=== PATIENT | female | born 1985 | race Caucasian/White ===

== ENCOUNTER 2017-01-05 10:06 | Inpatient (IN) | payer MEDICARE ==
[~2017-01-05] VITALS: Ht 157.5 cm; Wt 52.3 kg
[~2017-01-05 10:06] MED LIST: ACETAMINOPHEN325 MG NG; ATACAND16 MG PO; ATIVAN1 MG PO; BAYER CHEWABLE81 MG PO; BENADRYL25 MG PO; BENADRYL50 MG PO; BUMEX2 MG PO; BUTALB-APAP-CA1 EACH PO; CARAFATE1 G PO; COUMADIN2 MG PO; CREON (PANCRELI1 CAP PO; DILAUDID INJ2 MG/ML PO; DILAUDID2 MG PO; DOMPERIDONE PO; ELAVIL25 MG PO; EPOGEN10000 U/ML; ESGIC TABLET1 TAB PO; EUCERIN CREAM120 GM TP; FLOMAX0.4 MG PO; HUMALOG 30100 UNITS/ SC; HUMALOG100 U/M1 SQ; HUMULIN R100 U/ML SC; INSTA-GLUCOSE31 GM PO; LEVAQUIN500 MG PO; LEVEMIR100 U/M1 SC; LEVEMIR100 U/M1 SQ; LOPRESSOR25 MG PO; NEURONTIN 100100 MG PO; NORCO 7.5-3251 EACH PO; NORVASC PO; NORVASC5 MG PO; OMNICEF300 MG PO; ONDANSETRON4 MG/2 M3 IV; PERCOCET 7.5/321 TA1 PO; PHENERGAN25 M1 PO; PHENERGAN25 MG RC; PHENERGAN25 MG/ML IV; PLAVIX75 MG PO; PRILOSEC20 MG PO; PRINIVIL20 MG PO; PROTEIN LIQUID30 ML PO; PROTONIX40 MG PO; REGLAN10 MG PO; REGLAN5 MG PO; SENOKOT-S TABLE1 TAB PO; TUMS500 MG PO; TYLENOL 8 HOUR650 MG PO; XARELTO15 MG PO; ZESTRIL10 MG PO; ZOFRAN4 MG PO; [UNRECOGNIZED DRUG - OTHER] IV
[2017-01-05] MEDS ORDERED: XANAX1 MG PO (10:47)
[2017-01-05] MEDS ORDERED: SENSIPAR60 MG PO (10:48)
[2017-01-05] MEDS ORDERED: PRINIVIL20 MG PO (10:48)
[2017-01-05] MEDS ORDERED: LEVEMIR100 U/M1 SC (10:49)
[2017-01-05] MEDS ORDERED: HUMALOG 30100 UNITS/ SC ×2 (10:50→10:51)
[2017-01-05] MEDS ORDERED: BENADRYL INJ50 MG/ML IV (10:53)
[2017-01-05 11:16] VITALS: BP 149/75; BMI 22.0
[2017-01-05 12:19] LABS: BASOPHILS 0.2 % (0-2); EOSINOPHILS 0 % (0-7); HEMATOCRIT 32.9 % (36.0-48.0); HEMOGLOBIN 10.5 g/dL (12-16); IMMATURE GRANULOCYTES 0.1 % (0-5); LYMPHOCYTES 1.4 % (15-50); MCH 32.4 pg (26.0-34.0); MCHC 31.9 g/dL (31.0-37.0); MCV 101.5 fL (80.0-100.0); MONOCYTES 3.3 % (2-11); PLATELET COUNT 204 10x3/uL (130-400); RBC 3.24 10x6/uL (4.00-5.40); RDW 15.9 % (11.5-14.5); WBC 11.3 10x3/uL (4.8-10.8)
[2017-01-05 12:29] LABS: ALBUMIN 3.2 g/dL (3.4-5.0); ANION GAP 23.8 mmol/L (8-16); BILIRUBIN - TOTAL 0.54 mg/dL (0.2-1.3); CALCIUM 7.9 mg/dL (8.5-10.1); CARBON DIOXIDE 18.5 mmol/L (21.0-32.0); CREATININE - SERUM 7.7 mg/dL (0.6-1.3); POTASSIUM - SERUM 5.3 mmol/L (3.5-5.1); PROTEIN - SERUM 7.3 g/dL (6.4-8.2)
[2017-01-05 12:56] LABS: APTT 40.8 SECONDS (22.8-39.4); INR 1.42 (0.85-1.17); PROTIME 17.2 SECONDS (11.6-15.0)
[2017-01-05 15:46] VITALS: BP 122/85
[2017-01-05 19:00] VITALS: BP 137/78
[2017-01-06 04:00] VITALS: BP 119/81
[2017-01-06 05:38] LABS: BASOPHILS 0.4 % (0-2); EOSINOPHILS 0 % (0-7); HEMATOCRIT 31.5 % (36.0-48.0); HEMOGLOBIN 9.9 g/dL (12-16); IMMATURE GRANULOCYTES 0.1 % (0-5); LYMPHOCYTES 2.7 % (15-50); MCH 31.9 pg (26.0-34.0); MCHC 31.4 g/dL (31.0-37.0); MCV 101.6 fL (80.0-100.0); MEAN PLATELET VOLUME 11.4 fL (7.4-10.4); MONOCYTES 2.8 % (2-11)
[2017-01-06 05:53] LABS: PLATELET COUNT 159 10x3/uL (130-400); WBC 7.8 10x3/uL (4.8-10.8)
[2017-01-06 06:06] LABS: ANION GAP 21.9 mmol/L (8-16); CARBON DIOXIDE 20.3 mmol/L (21.0-32.0); CREATININE - SERUM 8.7 mg/dL (0.6-1.3); POTASSIUM - SERUM 5.2 mmol/L (3.5-5.1); VANCOMYCIN - RANDOM 17.2 ug/mL (10.0-20.0)
[2017-01-06 06:10] LABS: PHOSPHOROUS 9.2 mg/dL (2.5-4.9)
[2017-01-06 07:00] VITALS: BP 134/70
[2017-01-06 12:21] VITALS: Ht 157.5 cm; Wt 52.3 kg
[2017-01-06 12:54] VITALS: BP 136/85
[2017-01-06 16:55] VITALS: BP 131/64
[2017-01-06 19:00] VITALS: BP 97/52
[2017-01-07] VITALS: BP 127/68
[2017-01-07 04:00] VITALS: BP 116/59
[2017-01-07 05:33] LABS: BASOPHILS 0.5 % (0-2); EOSINOPHILS 0 % (0-7); LYMPHOCYTES 6.6 % (15-50); MCH 31.7 pg (26.0-34.0); MCHC 31.3 g/dL (31.0-37.0); MCV 101.2 fL (80.0-100.0); MEAN PLATELET VOLUME 11.4 fL (7.4-10.4); NEUTROPHILS 88.9 % (40-80); PLATELET COUNT 132 10x3/uL (130-400); RDW 15.8 % (11.5-14.5)
[2017-01-07 05:34] LABS: HEMATOCRIT 24.6 % (36.0-48.0); HEMOGLOBIN 7.7 g/dL (12-16); RBC 2.43 10x6/uL (4.00-5.40); WBC 4.2 10x3/uL (4.8-10.8)
[2017-01-07 05:51] LABS: CALCIUM 8.4 mg/dL (8.5-10.1); CARBON DIOXIDE 18.6 mmol/L (21.0-32.0); POTASSIUM - SERUM 5.6 mmol/L (3.5-5.1)
[2017-01-07 09:00] VITALS: BP 153/70
--- NOTE | 2017-01-07 13:45 | OP ---
PATIENT NAME: RM BOLTON MEDICAL RECORD: [id number] :[birth year] LOCATION:D.M2 D.2136 ADMISSION DATE:01/05/17 SURGEON: BRYCE MEJIA MD DATE OF OPERATION: 01/06/2017 PREOPERATIVE DIAGNOSES: 1. Infected right upper extremity AV graft. 2. End-stage renal disease. 3. Diabetes mellitus. 4. Diabetic gastroparesis. 5. AV graft pseudoaneurysm. POSTOPERATIVE DIAGNOSES: 1. Infected right upper extremity AV graft. 2. End-stage renal disease. 3. Diabetes mellitus. 4. Diabetic gastroparesis. 5. AV graft pseudoaneurysm. PROCEDURE: 1. I&D of the right upper extremity AV graft abscess. 2. Right upper extremity AV graft resection and replacement. SURGEON: Bryce Mejia MD REPORT OF PROCEDURE: The patient's abdomen was prepped and draped in sterile fashion. The sutures, which were in place were removed. The lateral/inferior suture revealed an open wound, which is not currently bleeding, but as I probed the wound, there began to be a little bit of bleeding and I noted that this appeared to be a pseudoaneurysm. The skin over top of this was completely eroded. I did not run into any purulent material rooted around through the subcutaneous tissues and they were all firmly attached to the area. At this point, I decided just going to replace the piece of infected graft where the pseudoaneurysm appeared to be present. Skin incisions were made on the afferent and efferent limbs to the AV graft. I was able to get around the graft itself and transect the graft once proximal and distal control had been obtained. Once we transected the graft, then I removed the infected graft towards the pseudoaneurysms through the skin that was broken down. Upon doing this, the skin that was attached to the graft was soaked in that it actually was tearing off. We decided just to excise this thin skin because I did not figure it would be able to survive once the graft was removed. This left us with a large wound on 2 separate places on the arm. The graft was completely excised and sent off for permanent specimen. We then tunneled a 40 cm, 6-mm graft around the patient's right upper extremity. The grafts ends were then cut with beveled tips. The patient was given 5000 units of heparin IV. We then performed end-to-end anastomoses of the graft materials using running 6-0 Prolenes. At the conclusion of this, there was significant amount of oozing from the puncture holes where the needle had been place. We tried light compression, we tried Fibrillar, we tried Sherif, but none of these seemed to stop the bleeding. We even tried given the patient a small dose of protamine, again the bleeding did not stop. We eventually decided just to close the wounds. The small puncture opening that was most lateral was closed with interrupted 5-0 Monocryl times 2. The remaining 3 incisions were all closed with 2-0 nylons in a vertical mattress fashion. We then cleaned off the arm and place pressure dressings over the bleeding sources and wrapped the arm up in Kerlix and an Archie wrap as a pressure OPERATIVE REPORT [id number] RM BOLTON dressing. Prior to this, it was noted that the patient had a good palpable thrill throughout the AV graft and especially at its most efferent end. COMPLICATIONS: None. CONDITION: Stable. ANESTHESIA: General endotracheal. BLOOD LOSS: 500 mL. TRANSINT:[id number] Voice Confirmation ID: [id number] DOCUMENT ID: [id number] BRYCE MEJIA MD at 1345 CC: ROLAND PEPE MD [id number] DICTATION DATE: 01/06/17 1633 RUNNING SPECIALIST: 01/07/17 0115 [facility] IN [facility] [address] [place] [address]
[2017-01-07 16:52] LABS: BASOPHILS 0.3 % (0-2); EOSINOPHILS 1.4 % (0-7); IMMATURE GRANULOCYTES 0.2 % (0-5); LYMPHOCYTES 4.8 % (15-50); MCH 31.7 pg (26.0-34.0); MCHC 32.7 g/dL (31.0-37.0); MEAN PLATELET VOLUME 11.3 fL (7.4-10.4); MONOCYTES 3.8 % (2-11); NEUTROPHILS 89.5 % (40-80); PLATELET COUNT 139 10x3/uL (130-400); RDW 16.8 % (11.5-14.5)
[2017-01-07 16:53] LABS: HEMATOCRIT 33.9 % (36.0-48.0); HEMOGLOBIN 11.1 g/dL (12-16); MCV 96.9 fL (80.0-100.0); WBC 6.6 10x3/uL (4.8-10.8)
[2017-01-07 17:24] VITALS: BP 107/67
[2017-01-07 20:19] VITALS: BP 117/73
[2017-01-08 04:33] VITALS: BP 101/50
[2017-01-08 06:23] LABS: BASOPHILS 0.6 % (0-2); HEMATOCRIT 32.5 % (36.0-48.0); HEMOGLOBIN 10.7 g/dL (12-16); IMMATURE GRANULOCYTES 0.2 % (0-5); LYMPHOCYTES 9.2 % (15-50); MCHC 32.9 g/dL (31.0-37.0); MCV 97.3 fL (80.0-100.0); MEAN PLATELET VOLUME 11.8 fL (7.4-10.4); MONOCYTES 7.5 % (2-11); NEUTROPHILS 81.5 % (40-80); PLATELET COUNT 150 10x3/uL (130-400); RBC 3.34 10x6/uL (4.00-5.40); RDW 17.5 % (11.5-14.5); WBC 5.2 10x3/uL (4.8-10.8)
[2017-01-08 06:38] LABS: ANION GAP 19.7 mmol/L (8-16); CARBON DIOXIDE 23.9 mmol/L (21.0-32.0); CREATININE - SERUM 7.6 mg/dL (0.6-1.3); POTASSIUM - SERUM 4.6 mmol/L (3.5-5.1)
[2017-01-08 06:40] LABS: CALCIUM 6.9 mg/dL (8.5-10.1)
[2017-01-08 09:34] VITALS: BP 106/66
== END 2017-01-08 12:55 | disposition home or self-care (01) | DRG 264 ==
LOC: D.M2 10:06
PROVIDERS: Surgery; ADMIT Internal Medicine Nephrology
PROC: 039 Upper Arteries, Drainage (ICD-10-PCS; 2017-01-06)
PROC: 03170KF Bypass Right Brachial Artery to Lower Arm Vein with Nonautologous Tissue Substitute, Open Approach (ICD-10-PCS; principal; 2017-01-06 12:15)
DX: T82.7XXA Infection and inflammatory reaction due to other cardiac and vascular devices, implants and grafts, initial encounter (principal); N18.6 End stage renal disease; I12.0 Hypertensive chronic kidney disease with stage 5 chronic kidney disease or end stage renal disease; Y83.8 Other surgical procedures as the cause of abnormal reaction of the patient, or of later complication, without mention of misadventure at the time of the procedure; E11.22 Type 2 diabetes mellitus with diabetic chronic kidney disease; Z79.4 Long term (current) use of insulin; D64.9 Anemia, unspecified; E11.43 Type 2 diabetes mellitus with diabetic autonomic (poly)neuropathy; K31.84 Gastroparesis; Z99.2 Dependence on renal dialysis; Z72.0 Tobacco use; B95.62 Methicillin resistant Staphylococcus aureus infection as the cause of diseases classified elsewhere

== ENCOUNTER 2017-06-19 12:27 | Inpatient (IN) | payer MEDICARE ==
[~2017-06-19] VITALS: Ht 157.5 cm; Wt 60.0 kg
[~2017-06-19 12:27] MED LIST changes: +BENADRYL INJ50 MG/ML IV; +SENSIPAR60 MG PO; +XANAX1 MG PO
[2017-06-19 14:30] LABS: BASOPHILS 0.3 % (0-2); EOSINOPHILS 1.8 % (0-7); HEMATOCRIT 27.9 % (36.0-48.0); HEMOGLOBIN 8.7 g/dL (12-16); IMMATURE GRANULOCYTES 0.4 % (0-5); LYMPHOCYTES 6.7 % (15-50); MCH 31.2 pg (26.0-34.0); MCHC 31.2 g/dL (31.0-37.0); MONOCYTES 7.1 % (2-11); NEUTROPHILS 83.7 % (40-80); RBC 2.79 10x6/uL (4.00-5.40); RDW 17.6 % (11.5-14.5); WBC 11.3 10x3/uL (4.8-10.8)
[2017-06-19 14:31] LABS: PLATELET COUNT 205 10x3/uL (130-400)
[2017-06-19 15:22] LABS: ALBUMIN 1.9 g/dL (3.4-5.0); BILIRUBIN - TOTAL 0.42 mg/dL (0.2-1.3); CARBON DIOXIDE 25.9 mmol/L (21.0-32.0); CREATININE - SERUM 5.6 mg/dL (0.6-1.3); POTASSIUM - SERUM 3.9 mmol/L (3.5-5.1); PROTEIN - SERUM 5.7 g/dL (6.4-8.2)
[2017-06-19 15:27] LABS: CALCIUM 6.5 mg/dL (8.5-10.1)
[2017-06-19 22:40] VITALS: BP 96/57; BMI 21.8
[2017-06-19] MEDS ORDERED: RENVELA800 MG PO (22:57)
[2017-06-19] MEDS ORDERED: PHENERGAN25 M1 PO (22:57)
[2017-06-19] MEDS ORDERED: ULTRAM50 MG PO (22:58)
[2017-06-19] MEDS ORDERED: LASIX80 MG PO (22:59)
[2017-06-19] MEDS ORDERED: ZOFRAN8 MG PO (23:00)
[2017-06-20 00:30] VITALS: BP 94/59
[2017-06-20 04:30] VITALS: BP 100/62
[2017-06-20 05:53] LABS: BASOPHILS 0.2 % (0-2); EOSINOPHILS 0.7 % (0-7); HEMATOCRIT 29.1 % (36.0-48.0); HEMOGLOBIN 8.4 g/dL (12-16); IMMATURE GRANULOCYTES 0.8 % (0-5); LYMPHOCYTES 7.3 % (15-50); MCH 30.7 pg (26.0-34.0); MCHC 28.9 g/dL (31.0-37.0); MEAN PLATELET VOLUME 10.2 fL (7.4-10.4); MONOCYTES 7.2 % (2-11); NEUTROPHILS 83.8 % (40-80); PLATELET COUNT 222 10x3/uL (130-400); RBC 2.74 10x6/uL (4.00-5.40); RDW 18.3 % (11.5-14.5); WBC 10.5 10x3/uL (4.8-10.8)
[2017-06-20 06:01] LABS: MCV 106.2 fL (80.0-100.0)
[2017-06-20 06:59] LABS: ANION GAP 18.6 mmol/L (8-16); CALCIUM 7.1 mg/dL (8.5-10.1); CARBON DIOXIDE 21.7 mmol/L (21.0-32.0); CREATININE - SERUM 6.2 mg/dL (0.6-1.3); VANCOMYCIN - RANDOM 23.1 ug/mL (10.0-20.0)
[2017-06-20 07:00] LABS: POTASSIUM - SERUM 5.3 mmol/L (3.5-5.1)
[2017-06-20 08:32] VITALS: BP 108/46
[2017-06-20 12:37] VITALS: Ht 157.5 cm; Wt 60.0 kg
[2017-06-20 14:46] VITALS: BP 88/58
[2017-06-20 20:43] VITALS: BP 80/48
[2017-06-21] VITALS: BP 90/43
[2017-06-21 04:00] VITALS: BP 95/50
[2017-06-21 06:38] LABS: HEMATOCRIT 24.2 % (36.0-48.0); HEMOGLOBIN 7.7 g/dL (12-16); LYMPHOCYTES 9.1 % (15-50); MCH 32.1 pg (26.0-34.0); MCHC 31.8 g/dL (31.0-37.0); MEAN PLATELET VOLUME 9.2 fL (7.4-10.4); NEUTROPHILS 80.3 % (40-80); PLATELET COUNT 229 10x3/uL (130-400); RDW 18.4 % (11.5-14.5); WBC 8.2 10x3/uL (4.8-10.8)
[2017-06-21 06:41] LABS: MCV 100.8 fL (80.0-100.0)
[2017-06-21 06:47] LABS: CALCIUM 7.1 mg/dL (8.5-10.1); VANCOMYCIN - RANDOM 14.6 ug/mL (10.0-20.0)
[2017-06-21 06:48] LABS: ANION GAP 11.9 mmol/L (8-16); CARBON DIOXIDE 27.9 mmol/L (21.0-32.0); CREATININE - SERUM 4.1 mg/dL (0.6-1.3); POTASSIUM - SERUM 3.8 mmol/L (3.5-5.1)
[2017-06-21 09:13] VITALS: BP 103/69
[2017-06-21 13:46] VITALS: BP 104/66
[2017-06-21 14:30] VITALS: BP 114/59
== END 2017-06-21 19:35 | disposition short-term general hospital (02) | DRG 314 ==
LOC: D.ER 12:27 → D.M2 15:14 → D.EDHOLD 15:14 → D.M2 21:34
PROVIDERS: Emergency Medicine; Internal Medicine Nephrology
PROC: 5A1D70Z Performance of Urinary Filtration, Intermittent, Less than 6 Hours Per Day (ICD-10-PCS; principal; 2017-06-20)
DX: T82.7XXA Infection and inflammatory reaction due to other cardiac and vascular devices, implants and grafts, initial encounter (principal); N18.6 End stage renal disease; A41.81 Sepsis due to Enterococcus; I12.0 Hypertensive chronic kidney disease with stage 5 chronic kidney disease or end stage renal disease; Z79.4 Long term (current) use of insulin; Z99.2 Dependence on renal dialysis; B95.2 Enterococcus as the cause of diseases classified elsewhere; E11.22 Type 2 diabetes mellitus with diabetic chronic kidney disease; I25.10 Atherosclerotic heart disease of native coronary artery without angina pectoris; Z95.1 Presence of aortocoronary bypass graft; K31.84 Gastroparesis; E11.65 Type 2 diabetes mellitus with hyperglycemia

== ENCOUNTER → 2017-08-06 16:42 | Outpatient (CLI) | payer MEDICARE ==
[2017-06-20 12:37] VITALS: BMI 21.7
[~2017-08-06 16:42] MED LIST changes: +BETAPACE 80 MG80 MG PO; +DILAUDID4 MG PO; +LASIX80 MG PO; +NITROSTAT0.4 MG SL; +RENVELA800 MG PO; +ULTRAM50 MG PO; +ZOFRAN8 MG PO
[2017-08-06 17:23] LABS: VANCOMYCIN - TROUGH 14.7 ug/mL (10.0-20.0)
[2017-08-06 18:07] LABS: CREATININE - SERUM 2.2 mg/dL (0.6-1.3)
== END | disposition home or self-care (01) ==
LOC: D.LABREF 16:42
DX: T81.4XXA Infection following a procedure, initial encounter (principal)

== ENCOUNTER → 2017-08-08 15:55 | Outpatient (CLI) | payer MEDICARE ==
[2017-06-20 12:37] VITALS: BMI 21.7
[2017-08-09 07:24] LABS: CREATININE - SERUM 3.1 mg/dL (0.6-1.3); VANCOMYCIN - RANDOM 12.7 ug/mL (10.0-20.0)
== END ==
LOC: D.LABREF 15:55
PROVIDERS: Nurse Practitioner Family
DX: T81.4XXA Infection following a procedure, initial encounter (principal)

== ENCOUNTER → 2017-08-09 18:48 | Outpatient (CLI) | payer MEDICARE ==
[2017-06-20 12:37] VITALS: BMI 21.7
[~2017-08-09 18:48] MED LIST changes: -BETAPACE 80 MG80 MG PO; -DILAUDID4 MG PO; -NITROSTAT0.4 MG SL
[2017-08-09 19:47] LABS: VANCOMYCIN - TROUGH 11.4 ug/mL (10.0-20.0)
== END | disposition home or self-care (01) ==
LOC: D.LABREF 18:48
DX: T81.4XXA Infection following a procedure, initial encounter (principal)

== ENCOUNTER → 2017-08-10 20:08 | Outpatient (CLI) | payer MEDICARE ==
[2017-06-20 12:37] VITALS: BMI 21.7
[~2017-08-10 20:08] MED LIST changes: +BETAPACE 80 MG80 MG PO; +DILAUDID4 MG PO; +NITROSTAT0.4 MG SL
[2017-08-10 21:29] LABS: CREATININE - SERUM 4.8 mg/dL (0.6-1.3); VANCOMYCIN - TROUGH 8.5 ug/mL (10.0-20.0)
== END | disposition home or self-care (01) ==
LOC: D.LABREF 20:08
DX: T81.4XXA Infection following a procedure, initial encounter (principal); E10.22 Type 1 diabetes mellitus with diabetic chronic kidney disease

== ENCOUNTER 2017-09-08 13:49 | Emergency (ER) | payer MEDICARE ==
[2017-06-20 12:37] VITALS: BMI 21.7
[~2017-09-08 13:49] MED LIST changes: -BETAPACE 80 MG80 MG PO; -DILAUDID4 MG PO; -NITROSTAT0.4 MG SL
[2017-09-08 17:23] LABS: BASOPHILS 0.5 % (0-2); EOSINOPHILS 3.6 % (0-7); HEMATOCRIT 37.8 % (36.0-48.0); HEMOGLOBIN 11.9 g/dL (12-16); IMMATURE GRANULOCYTES 0.1 % (0-5); LYMPHOCYTES 13.1 % (15-50); MCH 30.8 pg (26.0-34.0); MCHC 31.5 g/dL (31.0-37.0); MCV 97.9 fL (80.0-100.0); MEAN PLATELET VOLUME 10.3 fL (7.4-10.4); MONOCYTES 5.4 % (2-11); NEUTROPHILS 77.3 % (40-80); RBC 3.86 10x6/uL (4.00-5.40); RDW 18.4 % (11.5-14.5); WBC 7.6 10x3/uL (4.8-10.8)
[2017-09-08 17:27] LABS: PLATELET COUNT 183 10x3/uL (130-400)
[2017-09-08 18:16] LABS: ALBUMIN 2.6 g/dL (3.4-5.0); ANION GAP 22.2 mmol/L (8-16); BILIRUBIN - TOTAL 0.58 mg/dL (0.2-1.3); CALCIUM 8.6 mg/dL (8.5-10.1); CARBON DIOXIDE 15.9 mmol/L (21.0-32.0); CREATININE - SERUM 7.3 mg/dL (0.6-1.3); POTASSIUM - SERUM 5.1 mmol/L (3.5-5.1); PROTEIN - SERUM 7.6 g/dL (6.4-8.2)
== END 2017-09-08 19:15 | disposition home or self-care (01) ==
LOC: D.ER 13:49
PROVIDERS: Emergency Medicine
DX: K59.03 Drug induced constipation (principal); T40.605A Adverse effect of unspecified narcotics, initial encounter; Y92.89 Other specified places as the place of occurrence of the external cause; E11.9 Type 2 diabetes mellitus without complications; Z79.4 Long term (current) use of insulin; Z99.2 Dependence on renal dialysis

== ENCOUNTER 2017-09-14 01:43 | Inpatient (IN) | payer MEDICARE ==
[~2017-09-14] VITALS: Ht 157.5 cm; Wt 48.6 kg
--- NOTE | ~2017-09-14 | HEMODYNAMI ---
PATIENT:RM BOLTON MEDICAL RECORD: [id number] : 83 [id number] ADMISSION DATE: 09/14/17 Generatedon:09/14/201711:48 Patient name: RM BOLTON Patient #: [id number] : 1985 Date of study: 09/14/2017 Page: Of Hemodynamic Procedure Report Patient Data Patient Demographics Procedure consent was obtained First Name: RM Gender: Female Last Name: CHE : 1985 [facility] Initial: ROSEMARY Age: 32 year(s) Patient #: [id number] Race: SSN: [id number] Additional ID: [id number] Contact details [address]: [address] [place] [address] State: [place] City: [place] Zip code: [address] Admission Admission Data Admission Date: 09/14/2017 Admission Time: 4:02 Room #: D.2117 Procedure Procedure Types Cath Procedure Diagnostic Procedure LHC LHC w/Coronaries w/Grafts Sedation Charges Moderate Sedation up to 15 minutes PCI Procedure Coronary Stent Coronary Stent Initial Procedure Description Procedure Date Procedure Date: 09/14/2017 Procedure Start Time: 11:27 Procedure End Time: 11:45 Procedure Staff Name Function Connor Woodson MD Performing Physician Drea Marcos RT Monitor Maya Campos RT Scrub Sergio Gonzalez RN Nurse Procedure Data Cath Procedure Fluoroscopy Diagnostic fluoroscopy Total fluoroscopy Time: 5.3 time: 5.3 min min Diagnostic fluoroscopy Total fluoroscopy dose: dose: 203.22 mGy 203.22 mGy Contrast Material Contrast Material Type Amount (ml) Isovue 300 87 Entry Location Entry Primary Successful Side Size Upsize Upsize Entry Closure Succes sful Closure Location (Fr) 1 (Fr) 2 (Fr) Remarks Device Remarks Femoral Right 5 Fr 6 Fr Exoseal artery Short Estimated blood loss: 5 ml Diagnostic catheters Device Type Used For End Catheter Placement MULTIPACK Pigtail 5 Fr LV Angiography catheter MULTIPACK JL 4.0 5Fr Left Coronary catheter Angiography MULTIPACK 3DRC 5Fr Multi-vessel catheter Angiography DIAGNOSTIC AR 2 MOD 5 Fr Multi-vessel catheter ([id number]) Angiography Procedure Complications No complications Procedure Medications Medication Administration Route Dosage 0.9% NaCl I.V. 30 ml/hr Oxygen etCO2 Nasal cannula 2 l/min Heparin Flush Bag added to field 2 bags (1000units/500ml NS) Lidocaine 2% added to field 20 Versed I.V. 2 mg Fentanyl I.V. 100 mcg Benadryl I.V. 50 mg Heparin Bolus I.V. 4000 units Hemodynamics Rest Heart Rate: 81 (bpm) Pressure Samples Time Site Value (mmHg) Purpose Heart Use Rate(bpm) 11:29 LV 27/3,8 Snapshot 98 Snapshots Pre Cath Intra NCS Post Cath Vital Signs Time Heart Resp SPO2 etCO2 NIBP (mmHg) Rhythm Pain Sedation Rate (ipm) (%) (mmHg) Status Level (bpm) 11:01:22 68 16 89 32.9 119/73(95) NSR 0 (11) 10(A) , No pain 11:05:30 67 15 94 32.1 116/77(98) NSR 0 (11) 10(A) , No pain 11:09:33 67 12 90 28.4 111/77(94) NSR 0 (11) 10(A) , No pain 11:13:37 67 12 90 27.6 112/76(94) NSR 0 (11) 10(A) , No pain 11:17:39 67 14 92 32.1 115/78(92) NSR 0 (11) 10(A) , No pain 11:21:41 66 11 95 32.1 111/78(99) NSR 0 (11) 10(A) , No pain 11:25:42 67 19 91 28.4 112/76(101) NSR 0 (11) 10(A) , No pain 11:29:46 68 34 92 35.1 123/73(97) NSR 0 (11) 10(A) , No pain 11:33:52 66 11 94 31.4 115/71(105) NSR 0 (11) 10(A) , No pain 11:37:52 67 15 94 35.9 127/83(102) NSR 0 (11) 10(A) , No pain 11:41:57 67 23 94 31.4 123/81(94) NSR 0 (11) 10(A) , No pain Medications Time Medication Route Dose Verified Delivered Reason Notes Effectiveness by by 11:04:54 0.9% NaCl I.V. 30 Sergio Sergio Per physician ml/hr Carlos Gonzalez RN RN 11:05:07 Oxygen etCO2 2 Sergio Sergio Per physician Nasal l/min Carlos Gonzalez cannula RN RN 11:05:18 Heparin Flush added 2 Sergio Sergio used for Bag to bags aCrlos Gonzalez procedure (1000units/500ml field RN RN NS) 11:05:32 Lidocaine 2% added 20ml Sergio Sergio for local to vial Carlos Gonzalez anesthetic field RN RN 11:17:35 Versed I.V. 2 mg Sergio Sergio for sedation Carlos Gonzalez RN RN 11:17:43 Fentanyl I.V. 100 Sergio Sergio for sedation mcg Carlos Gonzalez RN RN 11:21:34 Benadryl I.V. 50 mg Sergio Sergio Per physician Carlos Gonzalez RN RN 11:40:06 Heparin Bolus I.V. 4000 Sergio Sergio for units Carlos Gonzalez anticoagulation RN washcoat wiper Log Time Note 10:39:16 Informed consent obtained and on chart 10:39:20 Diagnostic Cath Status : Elective 10:39:39 Drea Marcos RT(R) sent for patient. Start room use. 10:39:40 Time tracking: Regular hours (M-F 7:00 - 5:00) 10:39:44 Plan of Care:Hemodynamics will remain stable., Cardiac rhythm will remain stable., Comfort level will be maintained., Respiratory function will remain adequate., Patient/ family verbilizes understanding of procedure., Procedure tolerated without complication., Recovers from procedure without complications.. 10:49:28 Patient received from Med II to CCL 3 Alert and oriented. Tansferred to table in Supine position. 10:49:30 Warm blankets applied, and hang hugger turned on for patient comfort. 10:49:30 Correct patient and procedure confirmed by team. 10:49:33 ECG and BP/O2 sat monitors applied to patient. 11:00:23 Baseline sample Acquired. 11:00:23 Vital chart was started 11:00:27 Rhythm: sinus rhythm 11:00:29 Full Disclosure recording started 11:00:32 H&P Date Dictated: 09/14/2017 New H&P dictated by physician.. 11:00:33 Pre-procedure instructions explained to patient. 11:00:34 Pre-op teaching completed and patient verbalized understanding. 11:00:39 Family in patients room. 11:00:41 Patient NPO since Midnight. 11:00:45 Is the patient allergic to Iodine/contrast media? No. 11:00:46 Was the patient premedicated? No 11:00:47 Is patient on blood thinner?Yes 11:00:49 ACC The patient was administered the following blood thiners within the last 24 hours: ACCPlavix 11:03:29 Patient diabetic? Yes. 11:03:30 If diabetic: On Metformin? No 11:03:33 Previous problem with sedation/anesthesia? No ? 11:03:35 Snore? Yes 11:03:36 Sleep apnea? No 11:03:37 Deviated septum? No 11:03:38 Opens mouth fully? Yes 11:03:39 Sticks out tongue? Yes 11:03:41 Airway obstruction? No ? 11:03:44 Dentures? No ? 11:03:48 Pre procedure: right dorsailis pedis pulse 2+ Normal; easily identifiable; not easily obliterated 11:03:51 Pre procedure: left dorsailis pedis pulse 3+ Increased pulse; moderate pressure to obliterate 11:03:54 Patient pain scale 0/10 ?. 11:04:00 IV patent on arrival in port with 0.9% NaCl at [facility]. 11:04:04 Lab results completed and on chart. 11:04:12 Right groin area was prepped with chlora-prep and draped in sterile fashion 11:04:15 Alarms reviewed by R. N. 11:04:15 Sharps counted by scrub and verified by R.N. 11:04:54 0.9% NaCl 30 ml/hr I.V. was administered by Sergio Gonzalez RN; Per physician; 11:05:07 Oxygen 2 l/min etCO2 Nasal cannula was administered by Sergio Gonzalez RN; Per physician; 11:05:18 Heparin Flush Bag (1000units/500ml NS) 2 bags added to field was administered by Sergio Gonzalez RN; used for procedure; 11:05:32 Lidocaine 2% 20ml vial added to field was administered by Sergio Gonzalez RN; for local anesthetic; 11:17:02 Physician arrived 11:17:02 --------ALL STOP TIME OUT------ 11:17:03 Final Timeout: patient, procedure, and site verified with staff and physician. All members of the team are in agreement. 11:17:06 Right groin site verified by team. 11:17:08 Physical assessment completed. ASA score P 2 - A patient with mild systemic disease as per Connor Woodson MD. 11:17:12 Sedation plan: IV Moderate Sedation Medication:Versed, Fentanyl 11:17:35 Versed 2 mg I.V. was administered by Sergio Gonzalez RN; for sedation; 11:17:43 Fentanyl 100 mcg I.V. was administered by Sergio Gonzalez RN; for sedation; 11:21:34 Benadryl 50 mg I.V. was administered by Sergio Gonzalez RN; Per physician; 11:27:19 Use device set Femoral Dx 11:27:20 ACIST Syringe (05144) opened to sterile field. 11:27:21 Bag Decanter (2002S) opened to sterile field. 11:27:21 Medline Cath Pack ([id number]) opened to sterile field. 11:27:22 DIAGNOSTIC WIRE .035 260cm J wire (279973) opened to sterile field. 11:27:27 ACIST Hand Control (72991) opened to sterile field. 11:27:28 ACIST Manifold (09163) opened to sterile field. 11:27:28 DIAGNOSTIC Multipack 5Fr catheter set (VR7994) opened to sterile field. 11:27:29 Tegaderm 4 x 4 (1626W) opened to sterile field. 11:27:30 SHEATH Prelude 5Fr 0.035 (SYG-8N-57-035) opened to sterile field. 11:27:33 Procedure started. 11:27:36 Local anesthetic to right femoral artery with Lidocaine 2% by Connor Woodson MD.INITIAL ACCESS ONLY 11:27:46 A 5 Fr sheath was inserted into the Right Femoral artery 11:28:47 A MULTIPACK Pigtail 5 Fr catheter was advanced over the wire and used for LV Angiography. 11:29:19 LV hemodynamics recorded. 11:29:20 LV gram done using BACA 11:29:22 Injector settings: Ml/sec: 5, Volume: 15, 11:29:28 EF : 25 % 11:29:32 Catheter removed. 11:29:41 A MULTIPACK JL 4.0 5Fr catheter was advanced over the wire and used for Left Coronary Angiography. 11:30:22 LCA angiography performed. 11:30:25 Injector settings: Ml/sec: 3, Volume: 6, 11:30:51 Catheter removed. 11:30:56 A MULTIPACK 3DRC 5Fr catheter was advanced over the wire and used for Multi-vessel Angiography. 11:31:14 TEJEDA angiography performed. 11:31:26 RCA angiography performed. 11:31:44 Catheter removed. 11:32:05 A DIAGNOSTIC AR 2 MOD 5 Fr catheter ([id number]) was advanced over the wire and used for Multi-vessel Angiography. 11:32:37 SVG to Ramus angiography performed. 11:36:41 Catheter removed. 11:36:42 Proceeding to intervention. 11:37:17 CHOICE PT Extra Support 182cm wire ([id number]) opened to sterile field. 11:37:18 INFLATOR Merit BasixCompak (GC4610) opened to sterile field. 11:37:19 SHEATH 6Fr Prelude ([id number]) opened to sterile field. 11:37:54 Sheath upsized to a 6 Fr Short. 11:38:05 GUIDE 6FR XBLAD 3.5 catheter ([id number]) opened to sterile field. 11:38:39 6 Fr xblad 3.5 guide catheter was inserted over the wire 11:38:44 choice pt wire advanced. 11:38:49 Wire advanced across lesion. 11:40:06 Heparin Bolus 4000 units I.V. was administered by Sergio Gonzalez RN; for anticoagulation; 11:41:37 Place stent Inflation Number: 1 A INTEGRITY RX 3.5 x 18 stent ([id number]) was prepped and advanced across the Prox LAD. The stent was deployed at 19 SARAH for 0:10 (min:sec). 11:41:45 Stent catheter was removed intact over wire. 11:41:47 Wire removed. 11:41:47 Guide catheter removed. 11:41:56 EXOSEAL 6Fr (EX600) opened to sterile field. 11:42:40 Sheath removed intact; hemostasis achieved with Exoseal to the Right Femoral artery. 11:42:42 Procedure ended.(Physican Out) 11:42:51 Fluoroscopy time 05.30 minutes. 11:42:56 Fluoroscopy dose: 203.22 mGy 11:42:56 Flurop Dose total: 203.22 11:43:09 Contrast amount:Isovue 300 87ml. 11:43:11 Sharps counted by scrub and verified by R.N. 11:43:13 Insertion/operative site no bleeding no hematoma. 11:43:16 Post-op/insertion site Right Femoral artery dressed using a 4 x 4 and Tegaderm. 11:43:19 Post right femoral artery:stable 11:43:21 Post Procedure Pulses reassessed and unchanged 11:43:24 Post procedure rhythm: unchanged. 11:43:26 Estimated blood loss: 5 ml 11:43:28 Post procedure instruction explained to patient.Patient verbalizes understanding. 11:43:29 Patient needs reinforcement of post procedure teaching. 11:44:37 Procedure type changed to Cath procedure, Diagnostic procedure, LHC, LHC w/Coronaries w/Grafts, Sedation Charges, Moderate Sedation up to 15 minutes, PCI procedure, Coronary Stent, Coronary Stent Initial 11:44:48 Procedure and supply charges have been captured, reviewed, submitted and are correct. 11:44:52 Procedure Complication : No complications 11:44:54 Vital chart was stopped 11:44:54 See physician's report for complete and final results. 11:44:57 Report given to [facility]. 11:45:00 Patient transfered to [facility] with Stretcher. 11:45:01 Procedure ended. 11:45:01 Full Disclosure recording stopped 11:45:26 ACC-PCI Only Patient was given prescriptions, or instructed by Connor Woodson MD to start/continue the following medications upon discharge: Plavix 11:45:28 End room use (Document Last) Intervention Summary Intervention Notes Time ActionType Lesion and Equipment Action# Pressure Duration Attributes Used 11:41:37 Place stent Prox LAD INTEGRITY RX 1 19 00:10 3.5 x 18 stent ([id number]) Device Usage Item Name Manufacture Quantity Catalog Number Hospital Part Current M inimal Lot# / Charge Number Stock Stock Serial# Code ACIST Syringe Acist 1 [id number] 239575 837416 495806 2 0 (85969) Medical Systems Inc Bag Decanter Microtek 1 2001S 282632 04673 877813 5 (2001S) Medical Inc. Medline Cath Cardinal 1 [id number] 960258 75832 573281 5 Feeding Forward Health ([id number]) DIAGNOSTIC WIRE St Miguel 1 068485 695116 225511 035857 3 0 .035 260cm J wire (349114) ACIST Hand Acist 1 32763 477026 401139 855000 5 Control (07105) Medical Systems Inc ACIST Manifold Acist 1 48556 912267 734582 405368 5 (11469) Medical Systems Inc DIAGNOSTIC Cardinal 1 PB0028 667504 62704 720571 3 0 Multipack 5Fr cheerapp catheter set (ED3435) Tegaderm 4 x 4 3M 1 1626W 138313 430321 931843 5 (1626W) SHEATH Prelude Merit 1 QBU-9U-14-035 952789 556531 352616 5 5Fr 0.035 Medical (FNE-6Q-15-035) MULTIPACK Cardinal 1 832857 5 Pigtail 5 Fr Health catheter MULTIPACK JL Cardinal 1 816521 5 4.0 5Fr Health catheter MULTIPACK 3DRC Cardinal 1 763371 5 5Fr catheter Health DIAGNOSTIC AR 2 Cardinal 1 [id number] 561759 848269 382193 2 0 MOD 5 Fr Health catheter (773468L) CHOICE PT Extra [place] 1 [id number] 728153 159491 359973 5 Support 182cm Scientific wire ([id number]) INFLATOR Merit Merit 1 FJ1656 821496 366336 647117 1 5 [employer] Medical (LL5600) SHEATH 6Fr Merit 1 [id number] 675313 053256 025380 5 Prelude Medical ([id number]) GUIDE 6FR XBLAD Cardinal 1 [id number] 263368 818269 079872 1 0 3.5 catheter cheerapp ([id number]) INTEGRITY RX Medtronic 1 [id number] 219289 896438 754255 5 [id number] 3.5 x 18 stent ([id number]) EXOSEAL 6Fr Cardinal 1 EX600 899336 079536 223293 1 0 (EX600) Health Signature Audit [place] Stage Time Signature Unsigned Intra-Procedure 09/14/2017 Drea Marcos 11:48:15 AM RT(R) Signatures Monitor : Drea Marcos RT Signature : Date : Time : [facility] [address] [facility] [place] [address]
--- NOTE | ~2017-09-14 | CN ---
PATIENT NAME:RM CARBAJAL MEDICAL RECORD: [id number] : 83 LOCATION:D. D.2117 ADMIT DATE: 09/14/17 ACCOUNT: [id number] CONSULTING PHYSICIAN: HEMANTH LEVIN MD REFERRING PHYSICIAN: JASON HINOJOSA MD DATE OF CONSULTATION: 09/14/2017 Cardiology Consult DIAGNOSES: 1. Non-Q-wave myocardial infarction. 2. Coronary artery disease. 3. Status post coronary bypass graft surgery, 4-vessel in May of 2017. 4. Paroxysmal atrial fibrillation. 5. End-stage renal failure, on dialysis. 6. Insulin-dependent diabetes. HISTORY OF PRESENT ILLNESS: Mrs. Carbajal presents with chest discomfort. She is status post bypass surgery May of 2017. She has been having chest discomfort from her chest wall, but yesterday she had an onset of a totally different chest discomfort, very similar to that of the chest discomfort she was having prior to the bypass surgery, quite severe. She did not have palpitations with this. Her EKG is with nonspecific ST-T abnormalities. Her troponin is positive. She continues to have episodes of chest heaviness and pressure this morning. REVIEW OF SYSTEMS: The patient reports easy bruising but reports no swollen glands. The patient reports no fever, no night sweats, no significant weight gain, no significant weight loss. No significant exercise tolerance. The patient reports no dry eyes, no irritation, no vision change. Patient reports no difficulty hearing and no ear pain. Patient reports no frequent nose bleeds or nose and sinus problems. Patient reports on arm pain on exertion. No shortness of breath while lying down. No history of heart murmur. Patient reports no cough, no wheezing or coughing up blood. Patient reports no abdominal pain, no vomiting. Normal appetite. No diarrhea and not vomiting blood. No nausea and no constipation. Patient reports no incontinence. No difficulty urinating. No hematuria. No increased frequency. Patient reports no muscle aches. No weakness, no arthralgias, no back pain. No swelling of the extremities. Patient reports no abnormal mole, no jaundice, no rashes. Reports no loss of consciousness. No weakness and no numbness. No seizures, dizziness, or headaches. The patient reports no depression, no sleep disturbance, feeling safe in a relationship and no alcohol abuse. Patient reports on fatigue. Reports no runny nose or sinus pressure. No itching, no hives, and no frequent sneezing. PHYSICAL EXAMINATION: GENERAL APPEARANCE: Well-nourished, well-developed, appears stated age. Level of distress, comfortable. PSYCHIATRIC: Mental status, alert, normal affect. Orientation, oriented to time, place and person. EYES: Lids and conjunctiva, noninjected. No discharge, no pallor. ENT: Lips, teeth, gums, normal dentition. Oropharynx, no cyanosis, no pallor. NECK: Carotid arteries, bilateral normal upstroke, no bruits, no thrills. JUGULAR VEINS: No jugular venous pressure or distention. CERVICAL LYMPH NODES: Nontender, nonenlarged. CONSULT REPORT [id number] RM CARBAJAL THYROID: Not enlarged. Nontender. No nodules. LUNGS: Respiratory effort, unlabored. CHEST: Normal curvature. No thoracic deformity. No chest wall tenderness. Percussion, resonant. Auscultation, clear. No wheezes, no rales, no rhonchi. CARDIOVASCULAR: Precordial exam, nondisplaced. No heaves or pericardial thrills. Rate and rhythm, regular. Heart sounds, normal S1, normal S2. No S3, no gallop, no rub. Systolic murmur, not heard. Diastolic murmur, not heard. EXTREMITIES: No cyanosis, no edema. Peripheral pulses, full and equal in all extremities, except as noted. No bruits appreciated. ABDOMEN: Soft, nondistended. Normal aorta. No bruit. Nontender. No masses. Liver, nontender, no hepatomegaly. Spleen, nontender, no splenomegaly. MUSCULOSKELETAL: No joint tenderness. No joint swelling. No erythema. NEUROLOGICAL: Normal gait, normal strength, normal tone. SKIN: Warm and dry. OVERALL IMPRESSION: Most likely she has graft failure or threatened graft failure. We will proceed with coronary angiography. Further care depends upon findings of the angiography. TRANSINT:[id number] Voice Confirmation ID: [id number] DOCUMENT ID: [id number] HEMANTH LEVIN MD at 1444 CC: [id number] DICTATION DATE: 09/14/17902 CHIEF INFORMATION SECURITY OFFICER: 09/14/17 1211 DIS IN 09/15/17 [id number] [place] [address]
--- NOTE | ~2017-09-14 | OP ---
PATIENT NAME: RM BOLTON MEDICAL RECORD: [id number] :83 LOCATION:D.M2 D.2117 ADMISSION DATE:09/14/17 SURGEON: HEMANTH LEVIN MD DATE OF OPERATION: 09/14/2017 PROCEDURES: 1. PTCA stent LAD. 2. Left heart catheterization. 3. Selective coronary angiography. 4. Left ventriculogram. 5. Vein graft angiography. 6. TEJEDA angiography. INDICATION: Angina and coronary artery disease. PROCEDURE IN DETAIL: After informed consent was obtained and after a detailed explanation of the risks, benefits as well as alternative therapies, the patient elected to proceed with angiogram and angioplasty. The right femoral area was prepped and draped in normal sterile fashion. Right femoral artery was cannulated via modified Seldinger technique with placement of 6-Italian sheath. All catheters exchanged through this sheath. FINDINGS: Left ventriculogram was performed in standard 30-degree BACA view, reveals global hypokinesis throughout all segments. Overall ejection fraction 25%. SELECTIVE CORONARY ANGIOGRAPHY: 1. Left main is with no significant angiographic disease. 2. Left anterior descending has 95% stenosis of the ostium. 3. TEJEDA to the LAD is closed. 4. Left circumflex is closed. 5. Vein graft to the ramus intermedius is widely patent. Distal ramus intermedius is widely patent. 6. Right coronary has 95% stenosis times 2 in the distal vessel. 7. Vein graft to the right coronary is closed. No other vein grafts were found. PTCA STENT OF THE OSTIAL LAD: The stent used was a 3.5 x 18 mm Integrity. Result was 0% residual stenosis. OVERALL IMPRESSION: Successful percutaneous transluminal coronary angioplasty stent of the left anterior descending going from 95% initial stenosis to 0% residual. Plan for PTCA stent of the RCA in the near future. TRANSINT:[id number] Voice Confirmation ID: [id number] DOCUMENT ID: [id number] HEMANTH LEVIN MD at 1444 CC: [id number] DICTATION DATE: 09/14/17 1145 CUSTOM SHOEMAKER: 09/14/17 1433 DIS IN 09/15/17 [facility] [address] [id number]
--- NOTE | ~2017-09-14 | HP ---
PATIENT: RM BOLTON MEDICAL RECORD: [id number] ACCOUNT: [id number] LOCATION:[address] : [birth year] ADMISSION DATE: 09/14/17 HISTORY AND PHYSICAL EXAMINATION ADMISSION DATE: 09/13/2017 HISTORY OF PRESENT ILLNESS: The patient is a 32-year-old white female with ESRD on hemodialysis 3 times a week at [facility]. She presented to the ER with complaints of chest pain. Troponin level was checked and it was 0.2. She recently had a triple bypass CABG a month ago at the [facility] where she had been followed for her cardiomyopathy. She also has a history of type 1 diabetes, gastroparesis, hypertension, diabetic neuropathy, chronic headaches and restless leg. Dr. Woodson with cardiology was consulted and took her to the chemical laboratory tester this morning where she had 2 stents placed. She was then sent to the dialysis unit for hemodialysis. Other than the chest pain, the patient has no other complaints today. PAST MEDICAL HISTORY: 1. ESRD secondary to type 1 diabetes. She currently has a right arm AV graft placed by Dr. Gonzalez. 2. Type 1 diabetes. 3. Hypertension. 4. Coronary artery disease status post CABG times 3, June 2017 at the [facility]. She subsequently had infection of the incision site and had a wound VAC for several weeks and was also followed by plastic surgeon, Dr. Reyes. She received several weeks of IV antibiotics. 5. Restless leg. 6. Anemia of CKD. 7. Secondary hyperparathyroidism. 8. Gastroparesis secondary to diabetes. PAST SURGICAL HISTORY: 1. AV graft placement by Dr. Gonzalez. 2. CABG times 3 at the [facility], June 2017. 3. Gastric pacemaker. FAMILY HISTORY: No family history of kidney disease. SOCIAL HISTORY: She denies any tobacco, alcohol or illicit drug use. MEDICATIONS: Home medications are Lasix 80 mg p.o. daily p.r.n., Humalog sliding scale a.c. and at bedtime, Zofran 8 mg q.4-6 hours p.r.n., Renvela 800 mg 1 tablet p.o. t.i.d. with meals, Tums 500 mg t.i.d. with meals, Levemir 15 units subcutaneous at bedtime, Phenergan 25 mg q.6 hours p.r.n., Sensipar 90 mg p.o. daily, tramadol q.6 hours p.r.n., Xanax 1 mg p.o. t.i.d. p.r.n., Dilaudid 2 mg one tab q.6 hours p.r.n. given per cardiac surgery in July 2017. REVIEW OF SYSTEMS: Positive for chest pain, joint pain, back pain, headaches, nausea. All other review of systems are negative. PHYSICAL EXAMINATION: VITAL SIGNS: Stable. GENERAL: Alert, oriented times 3. HEAD: Normocephalic, atraumatic. HISTORY AND PHYSICAL [id number] RM BOLTON ENT: Oropharynx clear. No erythema or exudate. NECK: Supple, no JVD distention. CHEST: Regular rate and rhythm. Has intact sternal incision. HEART: Regular rate and rhythm. No murmur, rubs or gallops. LUNGS: Clear bilaterally. No wheezing, rales or crackles. ABDOMEN: Soft, nontender, active bowel sounds times 4. EXTREMITIES: +1 lower extremity edema. No amputations or deformities. ASSESSMENT AND PLAN: 1. Chest pain. The patient has a history of CAD with a recent CABG in June 2017 by the [facility]. She went to the heart cath today by Dr. Woodson, had 2 stents placed. Plan is to go back to the chemical laboratory tester again tomorrow for more stenting. 2. End-stage renal disease. Continue hemodialysis Tuesday, Tuesday, Tuesday. She will be receiving dialysis today after her heart catheterization. 3. Hypertension. Continue oral antihypertensives. 4. Type 1 diabetic. Continue her insulin and diabetic diet. The patient has been noncompliant with diet in the past. 5. Anemia of chronic kidney disease. We will follow H&H. 6. Hyperphosphatemia. Continue Tums and Renvela with renal diet. TRANSINT:[id number] Voice Confirmation ID: [id number] DOCUMENT ID: [id number] Dictated By: KHAI RAMÍREZ I have interviewed/examined the above patient and agree with these documented findings. CANDELARIO BENITO MD at 1644 at 1149 CC: [id number] DICTATION DATE: 09/14/17 1415 REFRIGERATION PERSON: 09/14/17 1558 ADM IN [facility] [address] [id number]
--- NOTE | ~2017-09-14 | EC ---
PATIENT:RM BOLTON DATE OF SERVICE: 09/14/17 SEX: F MEDICAL RECORD: [id number] DATE OF : 83 LOCATION:D.M2 D.211 AGE OF PATIENT: 32 ADMISSION DATE: 09/14/17 REFERRING PHYSICIAN: INTERPRETING PHYSICIAN: HEMANTH WOODSON MD ECHOCARDIOGRAM REPORT ECHO CHARGES 4 ECHO COMPLETE Date: 09/14 CLINICAL DIAGNOSIS: MN ECHOCARDIOGRAPHIC MEASUREMENTS (adult normal given) AC root (d.<3.7cm) 2.9 cm LV Septum d (<1.2 cm> 1.0 cm Valve Excursion 1.8 cm LV Septum (systole) 1.3 cm Left Atria (s.<4.0cm> 4.8 cm LVPW d(<1.2cm) 0.9 cm RV (d.<2.3cm) 3.4 cm LVPW (sytole) 1.2 cm LV diastole(<5.6CM) 5.6 cm MV E-F(>70mm/sec) cm LV systole 4.7 cm LVOT Diameter 1.7 cm MV exc.(>10mm) cm Est.ejection fraction (50-75%) % DOPPLER: LVIT cm/sec A 72.0 cm/sec E 120 cm/sec LA cm/sec RVSP 42.0 mmHg LVOT 80.0 cm/sec AOP1/2T m/s Asc. Ao 154 cm/sec RVOT 44.0 cm/sec RA cm/sec PA 90.0 cm/sec AV Gradient Peak 9.5 mmHg AV Mean 4.7 mmHg AV Area 1.1 cm MV Gradient Peak 6.6 mmHg MV Mean 2.6 mmHg MV Area cm COMMENTS: Field Contractor: [employer] Service Worker: 1 Dr. Woodson TAPE# PACS Pericardial Effusion N DATE OF SERVICE: 09/14/2017 PROCEDURE: Echocardiogram. FINDINGS: 1. Left ventricular chamber size is mildly dilated. Left ventricular systolic function is moderately reduced, overall ejection fraction in the 30% range. 2. Left atrium, right atrium, and right ventricle chamber sizes are moderately dilated. Left atrium measures 4.8 cm. 3. Valvular structures have normal structure and motion. ECHOCARDIOGRAM REPORT [id number] RM BOLTON 4. Doppler interrogation reveals moderate mitral regurgitation, moderate tricuspid regurgitation, no other valvular insufficiency or stenosis. Pulmonary systolic pressure is elevated, estimated at 42 mmHg. 5. No evidence of pericardial effusion or left ventricular thrombus. TRANSINT:[id number] Voice Confirmation ID: [id number] DOCUMENT ID: [id number] HEMANTH WOODSON MD at 1444 CC: [id number] DICTATION DATE: 09/14/17 1551 TIMBER RIDER: 09/14/17 1650 DIS IN 09/15/17 [id number] [id number]
--- NOTE | ~2017-09-14 | OP ---
PATIENT NAME: RM BOLTON MEDICAL RECORD: [id number] :83 LOCATION:D.M2 D.2117 ADMISSION DATE:09/14/17 SURGEON: HEMANTH LEVIN MD DATE OF OPERATION: 09/15/2017 PROCEDURES: 1. PTCA stent RCA. 2. Selective coronary angiography. PROCEDURE IN DETAIL: After informed consent was obtained and after a detailed description of risks, benefits as well as alternative therapies, the patient elected to proceed with angiogram and angioplasty. The left femoral area was prepped and draped in normal sterile fashion. Left femoral artery was cannulated via modified Seldinger technique with placement of 6-Kyrgyz sheath. All catheters exchanged through this sheath. FINDINGS: The right coronary artery is subtotally occluded distally. This is addressed with a 2.25 x 8 mm Maldonado. Result was 0% residual stenosis. OVERALL IMPRESSION: Successful percutaneous transluminal coronary angioplasty stent of the right coronary artery going from subtotal initial stenosis to 0% residual. TRANSINT:[id number] Voice Confirmation ID: [id number] DOCUMENT ID: [id number] HEMANTH LEVIN MD at 1444 CC: [id number] DICTATION DATE: 09/15/17 0854 IMAGERY ANALYST: 09/15/17 1408 DIS IN 09/15/17 [facility] [address] [place] [address]
--- NOTE | ~2017-09-14 | HEMODYNAMI ---
PATIENT:RM OBLTON MEDICAL RECORD: [id number] : 83 [id number] ADMISSION DATE: 09/14/17 Generatedon:09/15/20178:59 Patient name: RM BOLTON Patient #: [id number] : 1985 Date of study: 09/15/2017 Page: Of Hemodynamic Procedure Report Patient Data Patient Demographics Procedure consent was obtained First Name: RM Gender: Female Last Name: CHE : 1985 Middle Initial: ROSEMARY Age: 32 year(s) Patient #: [id number] Race: SSN: [id number] Additional ID: [id number] Contact details [address]: [address] [place] [address] State: [place] City: [place] Zip code: [address] Past Medical History Allergies Allergen Reaction Date Comments Reported Other allergy 09/15/2017 tylenol, compazine Admission Admission Data Admission Date: 09/14/2017 Admission Time: 4:02 Arrival Date: 09/14/2017 Arrival Time: 4:02 Admit Source: Other Insurance Payor: Medicare Room #: D.2117 Lab Results Lab Result Date: 09/15/2017 Lab Result Time: 0:00 Biochemistry Name Units Result Min Max BUN mg/dl 49 --(----)-* 7 18 Creatinine mg/dl 5.5 --(----)-* 0.6 1.3 CBC Name Units Result Min Max Hemoglobin g/dl 11.9 *-(----)-- 13.5 17.5 Procedure Procedure Types Cath Procedure Diagnostic Procedure Sedation Charges Moderate Sedation up to 15 minutes PCI Procedure Coronary Stent Coronary Stent Initial Procedure Description Procedure Date Procedure Date: 09/15/2017 Procedure Start Time: 8:38 Procedure End Time: 8:55 Procedure Staff Name Function Connor Woodson MD Performing Physician Julio Hong RN Nurse Drea Marcos RT Scrub Sherrell Westfall RT Monitor Procedure Data Cath Procedure Fluoroscopy Diagnostic fluoroscopy Total fluoroscopy Time: 6.1 time: 6.1 min min Diagnostic fluoroscopy Total fluoroscopy dose: 817 dose: 817 mGy mGy Contrast Material Contrast Material Type Amount (ml) Isovue 300 76 Entry Location Entry Primary Successful Side Size Upsize Upsize Entry Closure Succes sful Closure Location (Fr) 1 (Fr) 2 (Fr) Remarks Device Remarks Femoral Left 6 Fr Exoseal artery Short Estimated blood loss: 10 ml Procedure Complications No complications Procedure Medications Medication Administration Route Dosage Oxygen NC 2 l/min Lidocaine 2% added to field 20 Heparin Flush Bag added to field 2 bags (1000units/500ml NS) 0.9% NaCl I.V. 100 ml/hr Versed I.V. 1 mg Fentanyl I.V. 50 mcg Heparin Bolus I.V. 4000 units Versed I.V. 1 mg Fentanyl I.V. 50 mcg Versed I.V. 1 mg Fentanyl I.V. 50 mcg Versed I.V. 0.5 mg Fentanyl I.V. 25 mcg Hemodynamics Rest HGB: 11.9 (g/dl) Heart Rate: 145 (bpm) Snapshots Pre Cath Intra NCS Post Cath Vital Signs Time Heart Resp SPO2 etCO2 NIBP (mmHg) Rhythm Pain Sedation Rate (ipm) (%) (mmHg) Status Level (bpm) 8:13:42 80 17 94 0 135/90(112) NSR 0 (11) 10(A) , No pain 8:17:46 77 15 93 20.1 133/91(120) NSR 0 (11) 10(A) , No pain 8:21:50 76 14 97 21.6 137/92(116) NSR 0 (11) 10(A) , No pain 8:26:43 75 13 96 22.4 119/83(97) NSR 0 (11) 10(A) , No pain 8:30:46 84 17 95 23.9 115/79(98) NSR 0 (11) 10(A) , No pain 8:34:46 75 15 95 23.1 115/83(106) NSR 0 (11) 10(A) , No pain 8:38:48 76 19 95 18.6 116/76(97) NSR 0 (11) 9(A) , No pain 8:42:51 73 22 93 20.1 116/70(90) NSR 0 (11) 9(A) , No pain 8:46:51 76 21 94 21.6 113/81(107) NSR 0 (11) 9(A) , No pain 8:50:53 74 26 94 19.4 120/76(101) NSR 0 (11) 9(A) , No pain 8:54:54 75 16 95 18.6 118/80(100) NSR 0 (11) 9(A) , No pain 8:58:36 75 15 96 22.4 130/87(109) NSR 0 (11) 10(A) , No pain Medications Time Medication Route Dose Verified Delivered Reason Notes Effectiveness by by 8:14:53 Oxygen NC 2 Connor Buffie Per physician l/min Kandice Hong RN 8:15:00 Lidocaine 2% added 20ml Connor Connor for local to vial Kandice Woodson MD anesthetic field 8:15:06 Heparin Flush added 2 Connor Connor used for Bag to bags Kandice Woodson MD procedure (1000units/500ml field NS) 8:15:15 0.9% NaCl I.V. 100 Connor Buffie Per physician ml/hr Kandice Hong RN 8:36:56 Versed I.V. 1 mg Connor Buffie for sedation Kandice oHng RN 8:37:04 Fentanyl I.V. 50 Connor Buffie for sedation mcg Kandice Hong RN 8:40:46 Heparin Bolus I.V. 4000 Connor Buffie for verifie d units Kandice Hong RN anticoagulation with dr woodson 8:41:43 Versed I.V. 1 mg Connor Buffie for sedation Kandice Hong RN 8:41:47 Fentanyl I.V. 50 Connor Buffie for sedation mcg Kandice Hong RN 8:47:15 Versed I.V. 1 mg Connor Buffie for sedation Kandice Hong RN 8:47:19 Fentanyl I.V. 50 Connor Buffie for sedation mcg Kandice Hong RN 8:51:50 Versed I.V. 0.5 Connor Buffie for sedation mg Kandice Hong RN 8:51:54 Fentanyl I.V. 25 Connor Buffie for sedation mcg Kandice Hong RN Procedure Log Time Note 7:45:21 Informed consent obtained and on chart 7:45:26 Diagnostic Cath Status : Elective 7:46:11 Drea Marcos RT(R) sent for patient. Start room use. 7:46:12 Time tracking: Regular hours (M-F 7:00 - 5:00) 7:46:16 Plan of Care:Hemodynamics will remain stable., Cardiac rhythm will remain stable., Comfort level will be maintained., Respiratory function will remain adequate., Patient/ family verbilizes understanding of procedure., Procedure tolerated without complication., Recovers from procedure without complications.. 8:02:50 Admit Source: Other 8:02:52 Arrival Date: 09/14/2017 4:02:00 AM 8:03:07 Insurance Payor : Medicare 8:04:10 Lab Result : Hemoglobin 11.9 g/dl 8:04:10 Lab Result : Creatinine 5.5 mg/dl 8:04:10 Lab Result : BUN 49 mg/dl 8:07:30 Patient received from Med II to [facility] 2 Alert and oriented. Tansferred to table in Supine position. 8:07:31 Warm blankets applied, and hang hugger turned on for patient comfort. 8:07:32 Correct patient and procedure confirmed by team. 8:07:33 ECG and BP/O2 sat monitors applied to patient. 8:12:37 Vital chart was started 8:14:53 Oxygen 2 l/min NC was administered by Julio Hong RN; Per physician; 8:15:00 Lidocaine 2% 20ml vial added to field was administered by Connor Woodson MD; for local anesthetic; 8:15:06 Heparin Flush Bag (1000units/500ml NS) 2 bags added to field was administered by Connor Woodson MD; used for procedure; 8:15:15 0.9% NaCl 100 ml/hr I.V. was administered by Julio Hong RN; Per physician; 8:17:43 Baseline sample Acquired. 8:17:47 Rhythm: sinus rhythm 8:17:48 Full Disclosure recording started 8:17:52 H&P Date Dictated: 09/14/2017 Within 30 days and on chart.. 8:17:53 Pre-procedure instructions explained to patient. 8:17:53 Pre-op teaching completed and patient verbalized understanding. 8:17:55 Family in patients room. 8:17:56 Patient NPO since Midnight. 8:18:12 Patient allergic to Other allergytylenol, compazine 8:18:14 Is the patient allergic to Iodine/contrast media? No. 8:18:14 Is patient on blood thinner?Yes 8:18:16 ACC The patient was administered the following blood thiners within the last 24 hours: ACCPlavix 8:18:18 Patient diabetic? Yes. 8:18:19 If diabetic: On Metformin? No 8:18:21 Previous problem with sedation/anesthesia? No ? 8:18:22 Snore? Yes 8:18:23 Sleep apnea? No 8:18:23 Deviated septum? No 8:18:24 Opens mouth fully? Yes 8:18:25 Sticks out tongue? Yes 8:18:27 Airway obstruction? No ? 8:18:28 Dentures? No ? 8:18:31 Pre procedure: left dorsailis pedis pulse 1+ Palpable, but thready & weak; easily obliterated 8:18:34 Patient pain scale 0/10 ?. 8:18:37 IV patent on arrival in port with 0.9% NaCl at [facility]. 8:18:40 Lab results completed and on chart. 8:18:42 Left groin area was prepped with chlora-prep and draped in sterile fashion 8:18:44 Alarms reviewed by R. N. 8:18:44 Sharps counted by scrub and verified by R.N. 8:18:56 ACIST Syringe (10740) opened to sterile field. 8:18:57 Bag Decanter (2001S) opened to sterile field. 8:18:57 Medline Cath Pack ([id number]) opened to sterile field. 8:18:58 DIAGNOSTIC WIRE .035 260cm J wire (128133) opened to sterile field. 8:18:59 ACIST Hand Control (14972) opened to sterile field. 8:19:00 ACIST Manifold (75088) opened to sterile field. 8:19:01 Tegaderm 4 x 4 (1626W) opened to sterile field. 8:19:20 INFLATOR Merit BasixCompak (LV3620) opened to sterile field. 8:19:21 SHEATH Prelude 6Fr 0.035 (BID-5K-63-035) opened to sterile field. 8:24:01 Use device set Femoral Dx 8:24:03 ACIST Syringe (10133) opened to sterile field. 8:24:04 Bag Decanter (2002S) opened to sterile field. 8:24:04 Medline Cath Pack ([id number]) opened to sterile field. 8:24:05 DIAGNOSTIC WIRE .035 260cm J wire (812653) opened to sterile field. 8:24:06 ACIST Hand Control (34981) opened to sterile field. 8:24:06 ACIST Manifold (15430) opened to sterile field. 8:24:09 DIAGNOSTIC Multipack 5Fr catheter set (QA8432) opened to sterile field. 8:24:10 Tegaderm 4 x 4 (1626W) opened to sterile field. 8:24:12 PERCUTANEOUS ENTRY 19GA needle opened to sterile field. 8:24:43 CHOICE PT Extra Support 182cm wire ([id number]) opened to sterile field. 8:24:44 INFLATOR Merit BasixCompak (UQ5013) opened to sterile field. 8:24:45 SHEATH 6Fr Prelude ([id number]) opened to sterile field. 8:25:19 Zero performed for pressure channel P1 8:27:31 Zero performed for pressure channel P1 8:35:11 Physician arrived 8:35:11 --------ALL STOP TIME OUT------ 8:35:27 Final Timeout: patient, procedure, and site verified with staff and physician. All members of the team are in agreement. 8:35:31 Left groin site verified by team. 8:35:35 Physical assessment completed. ASA score P 2 - A patient with mild systemic disease as per Connor Woodson MD. 8:35:38 Sedation plan: IV Moderate Sedation Medication:Versed, Fentanyl 8:36:56 Versed 1 mg I.V. was administered by Julio Hong RN; for sedation; 8:37:04 Fentanyl 50 mcg I.V. was administered by Julio Hong RN; for sedation; 8:38:15 Procedure started. 8:38:50 Local anesthetic to left femerol artery with Lidocaine 2% by Connor Woodson MD.INITIAL ACCESS ONLY 8:39:05 A 6 Fr Short sheath was inserted into the Left Femoral artery 8:39:24 J wire advanced. 8:39:38 Proceeding to intervention. 8:39:59 PCI Cath status Elective 8:40:34 GUIDE 6FR HS I SH catheter ([id number]) opened to sterile field. 8:40:46 Heparin Bolus 4000 units I.V. was administered by Julio Hong RN; for anticoagulation; verified with dr woodson 8:41:43 Versed 1 mg I.V. was administered by Julio Hong RN; for sedation; 8:41:47 Fentanyl 50 mcg I.V. was administered by Julio Hong RN; for sedation; 8:42:25 Wire advanced across lesion. 8:44:28 Place stent Inflation Number: 1 A AMPARO OTW 2.25 x 08 stent ([id number]) was prepped and advanced across the Dist RCA. The stent was deployed at 13 SARAH for 0:10 (min:sec). 8:44:49 Inflation number: 2 The stent balloon was then re-inflated across the Dist RCA to 11 SARAH for 0:10 (min:sec). 8:45:12 Inflation number: 3 The stent balloon was then re-inflated across the Dist RCA to 7 SARAH for 0:00 (min:sec). 8:45:19 Inflation number: 4 The stent balloon was then re-inflated across the Dist RCA to 11 SARAH for 0:00 (min:sec). 8:47:15 Versed 1 mg I.V. was administered by Julio Hong RN; for sedation; 8:47:19 Fentanyl 50 mcg I.V. was administered by Julio Hong RN; for sedation; 8:49:37 Inflation number: 5 The stent balloon was then re-inflated across the Dist RCA to 3 SARAH for 0:15 (min:sec). 8:49:45 Inflation number: 6 The stent balloon was then re-inflated across the Dist RCA to 5 SARAH for 0:04 (min:sec). 8:50:25 Wire removed. 8:50:25 Guide catheter removed. 8:50:43 Sheath removed intact; hemostasis achieved with Exoseal to the Left Femoral artery. 8:51:35 EXOSEAL 6Fr (EX600) opened to sterile field. 8:51:48 Procedure ended.(Physican Out) 8:51:50 Versed 0.5 mg I.V. was administered by Julio Hong RN; for sedation; 8:51:54 Fentanyl 25 mcg I.V. was administered by Julio Hong RN; for sedation; 8:51:58 Fluoroscopy time 06.10 minutes. 8:52:02 Flurop Dose total: 817 8:52:02 Fluoroscopy dose: 817 mGy 8:52:10 Contrast amount:Isovue 300 76ml. 8:52:11 Sharps counted by scrub and verified by R.N. 8:52:13 Insertion/operative site no bleeding no hematoma. 8:52:18 Post left femerol artery:stable 8:52:21 Post Procedure Pulses reassessed and unchanged 8:52:27 Post procedure rhythm: unchanged. 8:52:30 Estimated blood loss: 10 ml 8:52:33 Post procedure instruction explained to patient.Patient verbalizes understanding. 8:53:09 Procedure type changed to Cath procedure, Diagnostic procedure, Sedation Charges, Moderate Sedation up to 15 minutes, PCI procedure, Coronary Stent, Coronary Stent Initial 8:53:15 Procedure and supply charges have been captured, reviewed, submitted and are correct. 8:54:40 Procedure Complication : No complications 8:54:42 Vital chart was stopped 8:54:43 See physician's report for complete and final results. 8:54:45 Report given to [facility]. 8:54:58 Patient transfered to Med II with Bed. 8:55:16 Procedure ended. 8:55:16 Full Disclosure recording stopped 8:55:20 End room use (Document Last) Intervention Summary Intervention Notes Time ActionType Lesion and Equipment Action# Pressure Duration Attributes Used 8:44:28 Place stent Dist RCA AMPARO OTW 2.25 1 13 00:10 x 08 stent ([id number]) 8:44:49 Reinflate Dist RCA AMPARO OTW 2.25 2 11 00:10 stent x 08 stent balloon ([id number]) 8:45:12 Reinflate Dist RCA AMPARO OTW 2.25 3 7 00:00 stent x 08 stent balloon ([id number]) 8:45:19 Reinflate Dist RCA AMPARO OTW 2.25 4 11 00:00 stent x 08 stent balloon ([id number]) 8:49:37 Reinflate Dist RCA AMPARO OTW 2.25 5 3 00:15 stent x 08 stent balloon ([id number]) 8:49:45 Reinflate Dist RCA AMPARO OTW 2.25 6 5 00:04 stent x 08 stent balloon ([id number]) Device Usage Item Name Manufacture Quantity Catalog Number Hospital Part Current Minimal Lot# / Charge Number Stock Stock Serial# Code ACIST Syringe Acist 2 44794 745739 103432 955697 20 (17142) [employer] Bag Decanter Microtek 2 2001S 725998 61483 459480 5 (2001S) Medical Inc. Medline Cath Cardinal 2 [id number] 776345 44543 126309 5 Pack Health ([id number]) DIAGNOSTIC WIRE [facility] 2 565502 399879 363071 002109 30 .035 260cm J wire (561418) ACIST Hand Acist 2 60533 007628 516154 522551 5 Control (82110) [employer] Inc ACIST Manifold Acist 2 18420 081011 761995 621657 5 (05343) [employer] Systems Inc Tegaderm 4 x 4 3M 2 1626W 939271 549648 589340 5 (1626W) INFLATOR Merit Merit 2 UX2634 865450 332939 429335 15 BasPerspecSys Medical (NI6556) SHEATH Prelude Merit 1 VQE-6P-71-35 028491 8408312 920510 5 6Fr 0.035 Medical (ZQN-5G-75-035) DIAGNOSTIC Cardinal 1 IE4467 908252 01784 717230 30 Multipack 5Fr Health catheter set (GV0180) PERCUTANEOUS Cook Medical 1 I35088 115945 209406 5 ENTRY 19GA needle CHOICE PT Extra Shapleigh 1 [id number] 642377 234002 023280 5 Support 182cm Scientific wire ([id number]) SHEATH 6Fr Merit 1 [id number] 238123 127812 035055 5 Prelude Medical ([id number]) GUIDE 6FR HS I Medtronic 1 [id number] 701309 34970 480919 1 SH catheter ([id number]) AMPARO OTW 2.25 x Medtronic 1 [id number] 677267 22190 458579 5 08 stent ([id number]) EXOSEAL 6Fr Cardinal 1 EX600 946934 324932 112835 10 (EX600) Health Signature Audit [place] Stage Time Signature Unsigned Intra-Procedure 09/15/2017 Sherrell Westfall 8:59:41 AM RT(R) Signatures Monitor : Sherrell Westfall Signature : RT Date : Time : [facility] [address] [place] [address]
[2017-09-14 02:39] LABS: BASOPHILS 0.6 % (0-2); EOSINOPHILS 3.7 % (0-7); HEMOGLOBIN 11.4 g/dL (12-16); IMMATURE GRANULOCYTES 0.1 % (0-5); LYMPHOCYTES 9.4 % (15-50); MCH 30.2 pg (26.0-34.0); MCHC 31.7 g/dL (31.0-37.0); MCV 95.5 fL (80.0-100.0); MEAN PLATELET VOLUME 10.5 fL (7.4-10.4); NEUTROPHILS 77.2 % (40-80); PLATELET COUNT 192 10x3/uL (130-400); RBC 3.77 10x6/uL (4.00-5.40); RDW 17.5 % (11.5-14.5); WBC 7.3 10x3/uL (4.8-10.8)
[2017-09-14 03:01] LABS: ALBUMIN 2.8 g/dL (3.4-5.0); ALKALINE PHOSPHATASE 330 U/L (46-116); ALT (SGPT) 14 U/L (10-68); BILIRUBIN - TOTAL 0.55 mg/dL (0.2-1.3); CALC OSMOLALITY 307 mosm/kg (275-300); CALCIUM 7.7 mg/dL (8.5-10.1); CHLORIDE - SERUM 99 mmol/L (98-107); CREATININE - SERUM 6.6 mg/dL (0.6-1.3); POTASSIUM - SERUM 4.5 mmol/L (3.5-5.1); PROTEIN - SERUM 7.2 g/dL (6.4-8.2); SODIUM 138 mmol/L (136-145); UREA NITROGEN 71 mg/dL (7-18); eGFR NON AFRICAN AMERICAN 8 mL/min (90-120)
[2017-09-14 03:02] LABS: GLUCOSE 292 mg/dL (74-106)
[2017-09-14 03:16] LABS: AMYLASE - SERUM 44 U/L (25-115); CHOL - HDL RATIO 1.7 ratio (2.3-4.1); CHOLESTEROL, TOTAL 90 mg/dL (0-200); CREATINE KINASE 55 UL (21-215); HDL CHOLESTEROL 52 mg/dL (32-96); LDL CHOLESTEROL 22 mg/dL (0-100); LDL-HDL RATIO 0.4 ratio (1.5-3.5); LIPASE 231 U/L (73-393); TRIGLYCERIDE 81 mg/dL (30-200); TROPONIN-I 0.217 ng/mL (0.000-0.060)
[2017-09-14 03:30] LABS: KETONE - SERUM SMALL mg/dL (NEGATIVE)
[2017-09-14 04:15] LABS: PRO BNP > 35000 pg/mL (0-125)
[2017-09-14 05:27] LABS: TROPONIN-I 0.208 ng/mL (0.000-0.060)
[2017-09-14 07:38] VITALS: BP 146/74; Ht 157.5 cm; Wt 48.6 kg
[2017-09-14] MEDS ORDERED: BETAPACE 80 MG80 MG PO (07:50)
[2017-09-14] MEDS ORDERED: DILAUDID4 MG PO (07:50)
[2017-09-14] MEDS ORDERED: BAYER CHEWABLE81 MG PO (07:51)
[2017-09-14 08:59] LABS: ANION GAP 20.9 mmol/L (8-16); CALCIUM 7.6 mg/dL (8.5-10.1); CARBON DIOXIDE 21.7 mmol/L (21.0-32.0); CREATININE - SERUM 6.6 mg/dL (0.6-1.3); POTASSIUM - SERUM 4.6 mmol/L (3.5-5.1)
[2017-09-14 09:19] LABS: BASOPHILS 0.4 % (0-2); EOSINOPHILS 3.6 % (0-7); HEMATOCRIT 33.9 % (36.0-48.0); HEMOGLOBIN 10.5 g/dL (12-16); LYMPHOCYTES 11.6 % (15-50); MCH 29.8 pg (26.0-34.0); MCV 96.3 fL (80.0-100.0); MEAN PLATELET VOLUME 10.8 fL (7.4-10.4); MONOCYTES 11.8 % (2-11); NEUTROPHILS 72.6 % (40-80); PLATELET COUNT 189 10x3/uL (130-400); RBC 3.52 10x6/uL (4.00-5.40); RDW 17.9 % (11.5-14.5); WBC 6.7 10x3/uL (4.8-10.8)
[2017-09-14 11:53] LABS: CKMB 4.7 U/L (0.0-3.6); CREATINE KINASE 61 UL (21-215)
[2017-09-14 11:55] LABS: TROPONIN-I 0.167 ng/mL (0.000-0.060)
[2017-09-14 17:10] VITALS: BP 101/61
[2017-09-14 20:46] VITALS: BP 107/63
[2017-09-14 23:52] VITALS: BP 113/75
[2017-09-15 04:36] VITALS: BP 118/77
[2017-09-15 06:21] LABS: BASOPHILS 0.3 % (0-2); EOSINOPHILS 2.7 % (0-7); HEMATOCRIT 38.3 % (36.0-48.0); HEMOGLOBIN 11.9 g/dL (12-16); IMMATURE GRANULOCYTES 0.2 % (0-5); LYMPHOCYTES 6.5 % (15-50); MCH 30.4 pg (26.0-34.0); MCHC 31.1 g/dL (31.0-37.0); MCV 97.7 fL (80.0-100.0); MEAN PLATELET VOLUME 10.6 fL (7.4-10.4); MONOCYTES 10.2 % (2-11); NEUTROPHILS 80.1 % (40-80); RBC 3.92 10x6/uL (4.00-5.40); RDW 18.2 % (11.5-14.5)
[2017-09-15 06:22] LABS: ANION GAP 21.9 mmol/L (8-16); BILIRUBIN - TOTAL 0.6 mg/dL (0.2-1.3); CALCIUM 8.5 mg/dL (8.5-10.1); CARBON DIOXIDE 22.4 mmol/L (21.0-32.0); CREATININE - SERUM 5.5 mg/dL (0.6-1.3); POTASSIUM - SERUM 4.3 mmol/L (3.5-5.1); PROTEIN - SERUM 8.3 g/dL (6.4-8.2)
[2017-09-15 06:29] LABS: PLATELET COUNT 240 10x3/uL (130-400); WBC 9.7 10x3/uL (4.8-10.8)
[2017-09-15] MEDS ORDERED: PLAVIX75 MG PO (10:21)
[2017-09-15 10:45] VITALS: BP 113/75
== END 2017-09-15 16:30 | disposition home or self-care (01) | DRG 246 ==
LOC: D.ER 01:43 → D.M2 04:02 → D.EDHOLD 04:02 → D.M2 06:07
PROVIDERS: Family Medicine; Internal Medicine Interventional Cardiology
PROC: 4A023N7 Measurement of Cardiac Sampling and Pressure, Left Heart, Percutaneous Approach (ICD-10-PCS; 2017-09-14)
PROC: B2121ZZ Fluoroscopy of Single Coronary Artery Bypass Graft using Low Osmolar Contrast (ICD-10-PCS; 2017-09-14)
PROC: B2181ZZ Fluoroscopy of Left Internal Mammary Bypass Graft using Low Osmolar Contrast (ICD-10-PCS; 2017-09-14)
PROC: B2151ZZ Fluoroscopy of Left Heart using Low Osmolar Contrast (ICD-10-PCS; 2017-09-14)
PROC: B2111ZZ Fluoroscopy of Multiple Coronary Arteries using Low Osmolar Contrast (ICD-10-PCS; 2017-09-14)
PROC: 02703DZ Dilation of Coronary Artery, One Artery with Intraluminal Device, Percutaneous Approach (ICD-10-PCS; principal; 2017-09-14 11:30)
PROC: 027034Z Dilation of Coronary Artery, One Artery with Drug-eluting Intraluminal Device, Percutaneous Approach (ICD-10-PCS; 2017-09-15)
DX: I21.4 Non-ST elevation (NSTEMI) myocardial infarction (principal); N18.6 End stage renal disease; N25.81 Secondary hyperparathyroidism of renal origin; I12.0 Hypertensive chronic kidney disease with stage 5 chronic kidney disease or end stage renal disease; I25.719 Atherosclerosis of autologous vein coronary artery bypass graft(s) with unspecified angina pectoris; I25.119 Atherosclerotic heart disease of native coronary artery with unspecified angina pectoris; E10.22 Type 1 diabetes mellitus with diabetic chronic kidney disease; Z99.2 Dependence on renal dialysis; Z79.4 Long term (current) use of insulin; E10.43 Type 1 diabetes mellitus with diabetic autonomic (poly)neuropathy; E10.40 Type 1 diabetes mellitus with diabetic neuropathy, unspecified; K31.84 Gastroparesis; D63.1 Anemia in chronic kidney disease; I48.0 Paroxysmal atrial fibrillation; Z95.1 Presence of aortocoronary bypass graft; Z87.891 Personal history of nicotine dependence

== ENCOUNTER 2017-09-21 01:18 | Inpatient (IN) | payer MEDICARE ==
[~2017-09-21] VITALS: Ht 157.5 cm; Wt 54.5 kg
--- NOTE | ~2017-09-21 | OP ---
PATIENT NAME: RM BOLTON MEDICAL RECORD: [id number] :83 LOCATION:D.M2 D.2131 ADMISSION DATE:09/21/17 SURGEON: HEMANTH LEVIN MD DATE OF OPERATION: 09/22/2017 PROCEDURES: 1. PTCA stent LAD. 2. Left heart catheterization. 3. Selective coronary angiography. 4. Vein graft angiography. 5. Left ventriculogram. INDICATION: Angina and coronary artery disease. PROCEDURE IN DETAIL: After informed consent was obtained and after a detailed description of risks, benefits as well as alternative therapies, the patient elected to proceed with angiogram and angioplasty. The right femoral area was prepped and draped in normal sterile fashion. Right femoral artery was cannulated via modified Seldinger technique with placement of 6-Lebanese sheath. All catheters exchanged through this sheath. FINDINGS: The left ventriculogram was performed in standard 30-degree BACA view, reveals global hypokinesis throughout all segments. Overall ejection fraction 15%. SELECTIVE CORONARY ANGIOGRAPHY: 1. Left main is with no significant angiographic disease. 2. Left anterior descending has previously placed stent proximally. This is widely patent; however, there are 2 areas of greater than 80% stenosis in the mid and mid distal vessel. 3. The left circumflex is closed. 4. Vein graft to circumflex is widely patent. Distal circumflex is small and diffusely diseased, but widely patent. 5. The right coronary artery has previously placed stents. These are widely patent with no significant restenosis or thrombosis. CRAFT WORKER STENT OF THE LAD: The stents used were 3.5 x 15 and 2.25 x 15 both Xience stents. Result was 0% residual stenosis. OVERALL IMPRESSION: Successful percutaneous transluminal coronary angioplasty stent of the left anterior descending going from 80% initial stenosis times 2 to 0% residual stenosis. TRANSINT:[id number] Voice Confirmation ID: [id number] DOCUMENT ID: [id number] HEMANTH LEVIN MD at 0751 CC: [id number] DICTATION DATE: 09/22/17 1240 CLOTH BLEACHING RANGE BACK TENDER: 09/22/17 1253 ADM IN [place] [address] [place] [address]
--- NOTE | ~2017-09-21 | HEMODYNAMI ---
PATIENT:RM BOLTON MEDICAL RECORD: [id number] : 83 [facility] ADMISSION DATE: 09/21/17 Generatedon:09/22/201712:42 Patient name: RM BOLTON Patient #: [id number] : 1985 Date of study: 09/22/2017 Page: Of Hemodynamic Procedure Report Patient Data Patient Demographics Procedure consent was obtained First Name: RM Gender: Female Last Name: CHE : 1985 [facility] Initial: ROSEMARY Age: 32 year(s) Patient #: [id number] Race: SSN: [id number] Additional ID: [id number] Contact details [address]: [address] [place] [address] State: [place] City: [place] Zip code: [address] Past Medical History Allergies Allergen Reaction Date Comments Reported Other allergy 09/15/2017 tylenol, compazine Admission Admission Data Admission Date: 09/21/2017 Admission Time: 3:20 Room #: D.2131 Procedure Procedure Types Cath Procedure Diagnostic Procedure LHC LHC w/Coronaries w/Grafts Sedation Charges Moderate Sedation up to 15 minutes PCI Procedure Coronary Stent Coronary Stent Initial Procedure Description Procedure Date Procedure Date: 09/22/2017 Procedure Start Time: 12:18 Procedure End Time: 12:38 Procedure Staff Name Function Connor Woodson MD Performing Physician Drea Marcos RT Monitor Jesse Segundo RN Nurse Sherrell Westfall RT Scrub Saw Roblero RT Hospice Spiritual Care Coordinator Procedure Data Cath Procedure Fluoroscopy Diagnostic fluoroscopy Total fluoroscopy Time: 4.8 time: 4.8 min min Diagnostic fluoroscopy Total fluoroscopy dose: dose: 1090 mGy 1090 mGy Contrast Material Contrast Material Type Amount (ml) Isovue 300 93 Entry Location Entry Primary Successful Side Size Upsize Upsize Entry Closure Succes sful Closure Location (Fr) 1 (Fr) 2 (Fr) Remarks Device Remarks Femoral Right 6 Fr Exoseal artery Short Estimated blood loss: 5 ml Diagnostic catheters Device Type Used For End Catheter Placement MULTIPACK Pigtail 5 Fr LV Angiography catheter MULTIPACK JL 4.0 5Fr Left Coronary catheter Angiography MULTIPACK 3DRC 5Fr Right Coronary catheter Angiography Procedure Complications No complications Procedure Medications Medication Administration Route Dosage Oxygen etCO2 Nasal cannula 2 l/min Heparin Flush Bag added to field 2 bags (1000units/500ml NS) 0.9% NaCl I.V. 100 ml/hr Fentanyl I.V. 50 mcg Versed I.V. 1 mg Fentanyl I.V. 50 mcg Versed I.V. 1 mg Fentanyl I.V. 50 mcg Heparin Bolus I.V. 4000 units Hemodynamics Rest HGB: 11.9 (g/dl) Heart Rate: 62 (bpm) Pressure Samples Time Site Value (mmHg) Purpose Heart Use Rate(bpm) 12:20 LV 85/-4,22 Snapshot 58 Snapshots Pre Cath Intra NCS Post Cath Vital Signs Time Heart Resp SPO2 etCO2 NIBP (mmHg) Rhythm Pain Sedation Rate (ipm) (%) (mmHg) Status Level (bpm) 12:11:52 60 17 92 33.1 115/66(97) NSR 0 (11) 10(A) , No pain 12:16:26 58 16 100 30.1 118/71(90) NSR 0 (11) 10(A) , No pain 12:21:00 56 17 97 17.3 109/62(86) NSR 0 (11) 9(A) , No pain 12:31:29 84 17 100 21.8 102/68(88) NSR 0 (11) 9(A) , No pain 12:36:36 56 16 95 143/80(106) NSR 0 (11) 9(A) , No pain 12:41:11 54 16 98 110/73(89) NSR 0 (11) 9(A) , No pain Medications Time Medication Route Dose Verified Delivered Reason Notes Effectiveness by by 12:14:23 Oxygen etCO2 2 Connor Molina Per physician Nasal l/min Kandice Segundo RN cannula 12:14:31 Heparin Flush added 2 Connor Molina used for Bag to bags Kandice Segundo well logger (1000units/500ml field NS) 12:14:46 0.9% NaCl I.V. 100 Connor Molina Per physician ml/hr Kandice Segundo RN 12:15:22 Fentanyl I.V. 50 Connor Molina for [place] [facility] [place]andice Segundo RN 12:15:29 Versed I.V. 1 mg Connor Molina for sedation Kandice Segundo RN 12:17:26 Fentanyl I.V. 50 Connor Molina for sedation yemi Segundo RN 12:17:30 Versed I.V. 1 mg Connor Molina for sedation Kandice Segundo RN 12:19:19 Fentanyl I.V. 50 Connor Molina for sed[place] [facility] [place]andice Segundo RN 12:29:41 Heparin Bolus I.V. 4000 Connor Molina for units Kandice Segundo RN anticoagulation Procedure Log Time Note 11:35:51 Saw Roblero RT(R) sent for patient. Start room use. 11:45:52 Time tracking: Regular hours (M-F 7:00 - 5:00) 11:45:56 Plan of Care:Hemodynamics will remain stable., Cardiac rhythm will remain stable., Comfort level will be maintained., Respiratory function will remain adequate., Patient/ family verbilizes understanding of procedure., Procedure tolerated without complication., Recovers from procedure without complications.. 12:05:10 Patient received from Med II to CCL 1 Alert and oriented. Tansferred to table in Supine position. 12:05:11 Warm blankets applied, and hang hugger turned on for patient comfort. 12:05:12 Correct patient and procedure confirmed by team. 12:05:13 Signed procedure consent form obtained from patient. 12:05:14 ECG and BP/O2 sat monitors applied to patient. 12:11:04 Vital chart was started 12:11:07 Baseline sample Acquired. 12:11:13 Rhythm: sinus rhythm 12:11:26 Full Disclosure recording started 12:11:30 H&P Date Dictated: 09/22/2017 New H&P dictated by physician.. 12:11:31 Pre-procedure instructions explained to patient. 12:11:32 Pre-op teaching completed and patient verbalized understanding. 12:11:35 Family unavailable. 12:11:37 Patient NPO since Midnight. 12:11:40 Is the patient allergic to Iodine/contrast media? No. 12:11:42 Was the patient premedicated? No 12:11:43 Is patient on blood thinner?Yes 12:11:45 ACC The patient was administered the following blood thiners within the last 24 hours: ACCPlavix 12:11:48 Patient diabetic? Yes. 12:11:50 If diabetic: On Metformin? No 12:11:52 Previous problem with sedation/anesthesia? No ? 12:11:54 Snore? Yes 12:11:55 Sleep apnea? No 12:11:57 Deviated septum? No 12:11:57 Opens mouth fully? Yes 12:11:59 Sticks out tongue? Yes 12:12:03 Airway obstruction? No ? 12:12:06 Dentures? No ? 12:12:10 Pre procedure: right dorsailis pedis pulse 1+ Palpable, but thready & weak; easily obliterated 12:12:12 Pre procedure: left dorsailis pedis pulse 1+ Palpable, but thready & weak; easily obliterated 12:12:14 Patient pain scale 0/10 ?. 12:12:26 IV patent on arrival in port with 0.9% NaCl at [facility]. 12:12:32 Lab results completed and on chart. 12:12:37 Right groin area was prepped with chlora-prep and draped in sterile fashion 12:12:38 Alarms reviewed by R. N. 12:12:38 Sharps counted by scrub and verified by R.N. 12:12:40 Physician arrived 12:12:41 --------ALL STOP TIME OUT------ 12:12:42 Final Timeout: patient, procedure, and site verified with staff and physician. All members of the team are in agreement. 12:12:44 Right groin site verified by team. 12:12:47 Physical assessment completed. ASA score P 2 - A patient with mild systemic disease as per Connor Woodson MD. 12:12:53 Sedation plan: IV Moderate Sedation Medication:Versed, Fentanyl 12:13:02 Use device set Femoral Dx 12:13:03 ACIST Syringe (34518) opened to sterile field. 12:13:03 Bag Decanter () opened to sterile field. 12:13:03 Medline Cath Pack ([id number]) opened to sterile field. 12:13:04 DIAGNOSTIC WIRE .035 260cm J wire (636409) opened to sterile field. 12:13:07 DIAGNOSTIC Multipack 5Fr catheter set ([id number]) opened to sterile field. 12:13:08 ACIST Manifold (21630) opened to sterile field. 12:13:09 Tegaderm 4 x 4 (1626W) opened to sterile field. 12:13:20 SHEATH 6Fr Prelude ([id number]) opened to sterile field. 12:14:13 CHOICE PT Extra Support 182cm wire ([id number]) opened to sterile field. 12:14:14 INFLATOR Merit BasixCompak (SN8137) opened to sterile field. 12:14:23 Oxygen 2 l/min etCO2 Nasal cannula was administered by Jesse Segundo RN; Per physician; 12:14:31 Heparin Flush Bag (1000units/500ml NS) 2 bags added to field was administered by Jesse Segundo RN; used for procedure; 12:14:46 0.9% NaCl 100 ml/hr I.V. was administered by Jesse Segundo RN; Per physician; 12:15:22 Fentanyl 50 mcg I.V. was administered by Jesse Segundo RN; for sedation; 12:15:29 Versed 1 mg I.V. was administered by Jesse Segundo RN; for sedation; 12:16:38 Zero performed for pressure channel P1 12:17:17 Procedure started. 12:17:26 Fentanyl 50 mcg I.V. was administered by Jesse Segundo RN; for sedation; 12:17:30 Versed 1 mg I.V. was administered by Jesse Segundo RN; for sedation; 12:18:24 Local anesthetic to right femoral artery with Lidocaine 2% by Connor Woodson MD.INITIAL ACCESS ONLY 12:18:35 A 6 Fr Short sheath was inserted into the Right Femoral artery 12:18:47 A MULTIPACK Pigtail 5 Fr catheter was advanced over the wire and used for LV Angiography. 12:19:19 Fentanyl 50 mcg I.V. was administered by Jesse Segundo RN; for sedation; 12:20:13 LV hemodynamics recorded. 12:20:14 LV gram done using BACA 12:20:20 Injector settings: Ml/sec: 5, Volume: 15, 12:20:29 EF : 15 % 12:20:45 Catheter removed. 12:20:51 A MULTIPACK JL 4.0 5Fr catheter was advanced over the wire and used for Left Coronary Angiography. 12:21:51 LCA angiography performed. 12::57 Injector settings: Ml/sec: 3, Volume: 6, 12:22:30 GUIDE 6FR XBLAD 3.5 catheter ([id number]) opened to sterile field. 12::41 Catheter removed. 12::47 A MULTIPACK 3DRC 5Fr catheter was advanced over the wire and used for Right Coronary Angiography. 12:23:22 RCA angiography performed. 12:: Injector settings: Ml/sec: 3, Volume: 6, 12:24:02 Catheter removed. 12:24:18 6 Fr xblad 3.5 guide catheter was inserted over the wire 12::53 choice pt wire advanced. 12::53 Wire advanced across lesion. 12::41 Heparin Bolus 4000 units I.V. was administered by Jesse Segundo RN; for anticoagulation; 12:29:49 Place stent Inflation Number: 1 A ALPINE Rx 3.5 x 15 stent ([id number]) was prepped and advanced across the Mid LAD. The stent was deployed at 15 SARAH for 0:10 (min:sec). 12:30:21 Inflation number: 1 The stent balloon was then re-inflated across the Prox LAD to 21 SARAH for 0:10 (min:sec). 12:31:33 Stent catheter was removed intact over wire. 12:33:27 Inflate balloon Inflation number: 2 A ALPINE Rx 2.25 x 15 stent ([id number]) was prepped and advanced across the Mid LAD, then inflated to 13 SARAH for 0:10 (min:sec). 12:34:00 Inflation number: 3 The ALPINE Rx 2.25 x 15 stent ([id number]) was reinflated across the Mid LAD, to 3 SARAH for 0:10 (min:sec). 12:34:13 Inflation number: 4 The ALPINE Rx 2.25 x 15 stent ([id number]) was reinflated across the Mid LAD, to 3 SARAH for 0:10 (min:sec). 12:34:37 Stent catheter was removed intact over wire. 12:34:38 Wire removed. 12:34:39 Guide catheter removed. 12:35:15 Sheath removed intact; hemostasis achieved with Exoseal to the Right Femoral artery. 12:35:45 Procedure ended.(Physican Out) 12:36:51 Fluoroscopy time 04.80 minutes. 12:36:56 Flurop Dose total: 1090 12:36:56 Fluoroscopy dose: 1090 mGy 12:37:01 Contrast amount:Isovue 300 93ml. 12:37:02 Sharps counted by scrub and verified by R.N. 12:37:04 Insertion/operative site no bleeding no hematoma. 12:37:06 Post-op/insertion site Right Femoral artery dressed using a 4 x 4 and Tegaderm. 12:37:09 Post right femoral artery:stable 12:37:11 Post Procedure Pulses reassessed and unchanged 12:37:14 Post procedure rhythm: unchanged. 12:37:16 Estimated blood loss: 5 ml 12:37:20 Post procedure instruction explained to patient.Patient verbalizes understanding. 12:37:20 Patient needs reinforcement of post procedure teaching. 12:37:46 Procedure type changed to Cath procedure, Diagnostic procedure, LHC, LHC w/Coronaries w/Grafts, Sedation Charges, Moderate Sedation up to 15 minutes, PCI procedure, Coronary Stent, Coronary Stent Initial 12:37:51 Procedure and supply charges have been captured, reviewed, submitted and are correct. 12:37:55 Procedure Complication : No complications 12:37:59 Vital chart was stopped 12:38:00 See physician's report for complete and final results. 12:38:04 Report given to [facility]. 12:38:07 Patient transfered to [facility] with Stretcher. 12:38:08 Procedure ended. 12:38:08 Full Disclosure recording stopped 12:38:15 ACC-PCI Only Patient was given prescriptions, or instructed by Connor Woodson MD to start/continue the following medications upon discharge: Plavix 12:38:16 End room use (Document Last) 12:39:51 EXOSEAL 6Fr (EX600) opened to sterile field. Intervention Summary Intervention Notes Time ActionType Lesion and Equipment Action# Pressure Duration Attributes Used 12:29:49 Place stent Mid LAD ALPINE Rx 1 15 00:10 3.5 x 15 stent ([id number]) 12:30:21 Reinflate Prox LAD ALPINE Rx 1 21 00:10 stent 3.5 x 15 balloon stent ([id number]) 12:33:27 Inflate Mid LAD ALPINE Rx 2 13 00:10 balloon 2.25 x 15 stent ([id number]) 12:34:00 Reinflate Mid LAD ALPINE Rx 3 3 00:10 balloon 2.25 x 15 stent ([id number]) 12:34:13 Reinflate Mid LAD ALPINE Rx 4 3 00:10 balloon 2.25 x 15 stent ([id number]) Device Usage Item Name Manufacture Quantity Catalog Number Hospital Part Current Mini mal Lot# / Charge Number Stock Stock Serial# Code ACIST Acist 1 12116 014705 005120 060970 20 Syringe Medical (63625) Systems Inc Bag Decanter Microtek 1 2001S 543355 43640 451092 5 () Medical Inc. Medline Cath Cardinal 1 [id number] 161685 72863 511757 5 Pack Health ([id number]) DIAGNOSTIC [facility] 1 531803 735917 198182 050814 30 WIRE .035 260cm J wire (711644) DIAGNOSTIC Cardinal 1 ZK1911 065309 73696 180214 30 Multipack Health 5Fr catheter set (XK4353) ACIST Acist 1 77300 612648 215378 167517 5 Manifold Medical (03787) Systems Inc Tegaderm 4 x 3M 1 1626W 804102 904293 408802 5 4 (1626W) SHEATH 6Fr Merit 1 [id number] 365014 521535 496010 5 Prelude Medical ([id number]) CHOICE PT [place] 1 [id number] 565492 669680 403141 5 Extra Scientific Support 182cm wire (6382221F6) INFLATOR Merit 1 HB0040 599358 365448 808557 15 [facility] Medical BasixCompak (NI0587) MULTIPACK Cardinal 1 743612 5 Pigtail 5 Fr Health catheter MULTIPACK JL Cardinal 1 468456 5 4.0 5Fr Health catheter GUIDE 6FR Cardinal 1 [id number] 121923 070506 935929 10 XBLAD 3.5 Health catheter ([id number]) MULTIPACK Cardinal 1 826331 5 3DRC 5Fr Health catheter ALPINE Rx Sesay 1 6920055-96 418886 846565 207030 5 [id number] 3.5 x 15 Vascular stent ([id number]) ALPINE Rx Sesay 1 [id number] 792979 850196 324248 5 [id number] 2.25 x 15 Vascular stent ([id number]) EXOSEAL 6Fr Cardinal 1 EX600 476253 141495 490596 10 (EX600) Health Signature Audit [place] Stage Time Signature Unsigned Intra-Procedure 09/22/2017 Drae Marcos 12:42:18 PM RT(R) Signatures Monitor : Drea Marcos RT Signature : Date : Time : [address] [place] [address]
[~2017-09-21 01:18] MED LIST changes: +BETAPACE 80 MG80 MG PO; +DILAUDID4 MG PO
[2017-09-21 02:11] LABS: BASOPHILS 0.5 % (0-2); EOSINOPHILS 1.7 % (0-7); HEMATOCRIT 37.8 % (36.0-48.0); HEMOGLOBIN 11.2 g/dL (12-16); LYMPHOCYTES 9.9 % (15-50); MCH 29.9 pg (26.0-34.0); MCHC 29.6 g/dL (31.0-37.0); MCV 100.8 fL (80.0-100.0); MEAN PLATELET VOLUME 10.3 fL (7.4-10.4); MONOCYTES 5.7 % (2-11); NEUTROPHILS 82.2 % (40-80); PLATELET COUNT 198 10x3/uL (130-400); RBC 3.75 10x6/uL (4.00-5.40); RDW 18.4 % (11.5-14.5); WBC 6.5 10x3/uL (4.8-10.8)
[2017-09-21 02:21] LABS: APTT 54.3 SECONDS (22.8-39.4); INR 1.42 (0.85-1.17); PROTIME 16.9 SECONDS (11.6-15.0)
[2017-09-21 02:22] LABS: D-DIMER-QUANTITATIVE 3.05 ug/mLFEU (0.20-0.54)
[2017-09-21 02:44] LABS: ALBUMIN 2.8 g/dL (3.4-5.0); ALKALINE PHOSPHATASE 306 U/L (46-116); ALT (SGPT) 18 U/L (10-68); BILIRUBIN - TOTAL 0.51 mg/dL (0.2-1.3); CALC OSMOLALITY 311 mosm/kg (275-300); CALCIUM 8.1 mg/dL (8.5-10.1); CARBON DIOXIDE 18.7 mmol/L (21.0-32.0); CHLORIDE - SERUM 95 mmol/L (98-107); CHOLESTEROL, TOTAL 105 mg/dL (0-200); CKMB 4.8 U/L (0.0-3.6); CREATINE KINASE 68 UL (21-215); CREATININE - SERUM 7.3 mg/dL (0.6-1.3); HDL CHOLESTEROL 52 mg/dL (32-96); LDL CHOLESTEROL 38 mg/dL (0-100); LDL-HDL RATIO 0.7 ratio (1.5-3.5); POTASSIUM - SERUM 4.8 mmol/L (3.5-5.1); PROTEIN - SERUM 7.9 g/dL (6.4-8.2); SODIUM 129 mmol/L (136-145); TRIGLYCERIDE 77 mg/dL (30-200); UREA NITROGEN 66 mg/dL (7-18); eGFR NON AFRICAN AMERICAN 7 mL/min (90-120)
[2017-09-21 02:46] LABS: GLUCOSE 707 mg/dL (74-106); TROPONIN-I 0.194 ng/mL (0.000-0.060)
[2017-09-21 04:10] LABS: TROPONIN-I 0.223 ng/mL (0.000-0.060)
[2017-09-21 06:05] VITALS: BP 136/89; BMI 22.0
[2017-09-21 07:59] VITALS: BP 127/81
[2017-09-21 09:02] LABS: BASOPHILS 0.5 % (0-2); EOSINOPHILS 2.1 % (0-7); HEMATOCRIT 37.7 % (36.0-48.0); HEMOGLOBIN 11.6 g/dL (12-16); IMMATURE GRANULOCYTES 0.2 % (0-5); LYMPHOCYTES 10.3 % (15-50); MCH 30.4 pg (26.0-34.0); MCHC 30.8 g/dL (31.0-37.0); MEAN PLATELET VOLUME 10.8 fL (7.4-10.4); MONOCYTES 6.4 % (2-11); NEUTROPHILS 80.5 % (40-80); PLATELET COUNT 202 10x3/uL (130-400); RBC 3.81 10x6/uL (4.00-5.40); RDW 18.1 % (11.5-14.5); WBC 6.6 10x3/uL (4.8-10.8)
[2017-09-21 09:06] LABS: ANION GAP 23.7 mmol/L (8-16); CALCIUM 8.4 mg/dL (8.5-10.1); CARBON DIOXIDE 17.7 mmol/L (21.0-32.0); CREATININE - SERUM 7.2 mg/dL (0.6-1.3); POTASSIUM - SERUM 4.4 mmol/L (3.5-5.1)
[2017-09-21 10:59] VITALS: Ht 157.5 cm; Wt 54.5 kg
[2017-09-21 11:35] VITALS: BP 122/78
[2017-09-21 12:14] LABS: CKMB 5.1 U/L (0.0-3.6); CREATINE KINASE 122 UL (21-215)
[2017-09-21 12:17] LABS: TROPONIN-I 0.266 ng/mL (0.000-0.060)
[2017-09-21 16:59] LABS: CKMB 6.4 U/L (0.0-3.6); CREATINE KINASE 84 UL (21-215)
[2017-09-21 20:00] VITALS: BP 129/69
[2017-09-22] VITALS: BP 107/68
[2017-09-22 04:00] VITALS: BP 104/73
[2017-09-22 05:38] LABS: BASOPHILS 0.7 % (0-2); EOSINOPHILS 5.1 % (0-7); HEMATOCRIT 36.5 % (36.0-48.0); HEMOGLOBIN 11.2 g/dL (12-16); IMMATURE GRANULOCYTES 0.3 % (0-5); LYMPHOCYTES 9.7 % (15-50); MCH 29.9 pg (26.0-34.0); MCHC 30.7 g/dL (31.0-37.0); MCV 97.6 fL (80.0-100.0); MEAN PLATELET VOLUME 10.4 fL (7.4-10.4); MONOCYTES 11.2 % (2-11); PLATELET COUNT 207 10x3/uL (130-400); RBC 3.74 10x6/uL (4.00-5.40); RDW 17.6 % (11.5-14.5); WBC 7.6 10x3/uL (4.8-10.8)
[2017-09-22 05:55] LABS: ALBUMIN 2.6 g/dL (3.4-5.0); ANION GAP 17.7 mmol/L (8-16); BILIRUBIN - TOTAL 0.48 mg/dL (0.2-1.3); CALCIUM 8.3 mg/dL (8.5-10.1); CARBON DIOXIDE 21.3 mmol/L (21.0-32.0); CREATININE - SERUM 5.8 mg/dL (0.6-1.3); PROTEIN - SERUM 7.6 g/dL (6.4-8.2)
[2017-09-22 08:35] VITALS: BP 111/63
[2017-09-22 11:42] VITALS: BP 91/58
[2017-09-22 20:00] VITALS: BP 96/47
[2017-09-23 01:51] VITALS: BP 127/92
[2017-09-23 05:54] VITALS: BP 112/66
[2017-09-23 08:18] VITALS: BP 115/75
[2017-09-23] MEDS ORDERED: NITROSTAT0.4 MG SL (11:57)
== END 2017-09-23 14:33 | disposition home or self-care (01) | DRG 246 ==
LOC: D.ER 01:18 → D.EDHOLD 03:20 → D.M2 03:20
PROVIDERS: Family Medicine; Internal Medicine Interventional Cardiology
PROC: 4A023N7 Measurement of Cardiac Sampling and Pressure, Left Heart, Percutaneous Approach (ICD-10-PCS; 2017-09-22)
PROC: B2121ZZ Fluoroscopy of Single Coronary Artery Bypass Graft using Low Osmolar Contrast (ICD-10-PCS; 2017-09-22)
PROC: B2111ZZ Fluoroscopy of Multiple Coronary Arteries using Low Osmolar Contrast (ICD-10-PCS; 2017-09-22)
PROC: B2181ZZ Fluoroscopy of Left Internal Mammary Bypass Graft using Low Osmolar Contrast (ICD-10-PCS; 2017-09-22)
PROC: B2151ZZ Fluoroscopy of Left Heart using Low Osmolar Contrast (ICD-10-PCS; 2017-09-22)
PROC: 027035Z Dilation of Coronary Artery, One Artery with Two Drug-eluting Intraluminal Devices, Percutaneous Approach (ICD-10-PCS; 2017-09-22 12:00)
PROC: 5A1D70Z Performance of Urinary Filtration, Intermittent, Less than 6 Hours Per Day (ICD-10-PCS; principal; 2017-09-23)
DX: I25.119 Atherosclerotic heart disease of native coronary artery with unspecified angina pectoris (principal); N18.6 End stage renal disease; I12.0 Hypertensive chronic kidney disease with stage 5 chronic kidney disease or end stage renal disease; F41.9 Anxiety disorder, unspecified; I25.5 Ischemic cardiomyopathy; E11.22 Type 2 diabetes mellitus with diabetic chronic kidney disease; Z99.2 Dependence on renal dialysis; D64.9 Anemia, unspecified; E11.65 Type 2 diabetes mellitus with hyperglycemia; I08.1 Rheumatic disorders of both mitral and tricuspid valves; Z95.5 Presence of coronary angioplasty implant and graft; Z95.1 Presence of aortocoronary bypass graft; Z87.891 Personal history of nicotine dependence

== ENCOUNTER 2017-09-27 23:11 | Emergency (ER) | payer MEDICARE ==
[2017-09-21 10:59] VITALS: BMI 21.9
[~2017-09-27 23:11] MED LIST changes: +NITROSTAT0.4 MG SL
[2017-09-28 01:05] LABS: EOSINOPHILS 4.7 % (0-7); HEMATOCRIT 34.8 % (36.0-48.0); HEMOGLOBIN 11.2 g/dL (12-16); LYMPHOCYTES 13.6 % (15-50); MCHC 32.2 g/dL (31.0-37.0); MCV 93.3 fL (80.0-100.0); MEAN PLATELET VOLUME 9.9 fL (7.4-10.4); MONOCYTES 11.1 % (2-11); NEUTROPHILS 69.6 % (40-80); PLATELET COUNT 218 10x3/uL (130-400); RBC 3.73 10x6/uL (4.00-5.40); RDW 16.8 % (11.5-14.5); WBC 5.7 10x3/uL (4.8-10.8)
[2017-09-28 01:24] LABS: ALBUMIN 2.7 g/dL (3.4-5.0); ALKALINE PHOSPHATASE 361 U/L (46-116); ALT (SGPT) 14 U/L (10-68); BILIRUBIN - TOTAL 0.36 mg/dL (0.2-1.3); CALC OSMOLALITY 299 mosm/kg (275-300); CALCIUM 8.5 mg/dL (8.5-10.1); CARBON DIOXIDE 26.9 mmol/L (21.0-32.0); CHLORIDE - SERUM 100 mmol/L (98-107); CREATININE - SERUM 6.1 mg/dL (0.6-1.3); GLUCOSE 270 mg/dL (74-106); POTASSIUM - SERUM 4.7 mmol/L (3.5-5.1); PROTEIN - SERUM 7.6 g/dL (6.4-8.2); SODIUM 138 mmol/L (136-145); UREA NITROGEN 51 mg/dL (7-18); eGFR NON AFRICAN AMERICAN 8 mL/min (90-120)
[2017-09-28 01:39] LABS: CHOL - HDL RATIO 1.6 ratio (2.3-4.1); CHOLESTEROL, TOTAL 101 mg/dL (0-200); CKMB 3.5 U/L (0.0-3.6); CREATINE KINASE 66 UL (21-215); HDL CHOLESTEROL 62 mg/dL (32-96); LDL CHOLESTEROL 29 mg/dL (0-100); LDL-HDL RATIO 0.5 ratio (1.5-3.5); TRIGLYCERIDE 54 mg/dL (30-200)
== END 2017-09-28 03:00 | disposition home or self-care (01) ==
LOC: D.ER 23:11
PROVIDERS: Family Medicine
DX: R07.9 Chest pain, unspecified (principal)

== ENCOUNTER 2017-10-17 03:40 | Observation (INO) | payer MEDICARE ==
[~2017-10-17] VITALS: Ht 157.5 cm; Wt 49.0 kg
--- NOTE | ~2017-10-17 | CN ---
PATIENT NAME:RM CARBAJAL MEDICAL RECORD: [id number] : 83 LOCATION:D. D.2136 ADMIT DATE: 10/17/17 ACCOUNT: [id number] CONSULTING PHYSICIAN: HEMANTH LEVIN MD REFERRING PHYSICIAN: ROLAND PEPE MD DATE OF CONSULTATION: 10/17/2017 ADMITTING DIAGNOSES: 1. Angina, chronic stable. 2. Coronary artery disease. 3. Previous coronary bypass graft surgery. 4. Previous percutaneous transluminal coronary angioplasty stent. 5. End-stage renal failure, on dialysis. 6. Diabetes. HISTORY OF PRESENT ILLNESS: Mrs. Carabjal presents with continued chest pain, congestion, cough, fluid overload. She is status post coronary bypass graft surgery in [place], status post PTCA stent here. She has patency of her stents, patency of her grafts; however, diffuse disease distally. This is at this time just to medical management situation, she is on Imdur. She is not on a beta lyudmila, heart rates in the 80s, systolic blood pressures in 130s and 140s. PHYSICAL EXAMINATION: GENERAL APPEARANCE: Well-nourished, well-developed, appears stated age. Level of distress, comfortable. PSYCHIATRIC: Mental status, alert, normal affect. Orientation, oriented to time, place and person. EYES: Lids and conjunctiva, noninjected. No discharge, no pallor. ENT: Lips, teeth, gums, normal dentition. Oropharynx, no cyanosis, no pallor. NECK: Carotid arteries, bilateral normal upstroke, no bruits, no thrills. JUGULAR VEINS: No jugular venous pressure or distention. CERVICAL LYMPH NODES: Nontender, nonenlarged. THYROID: Not enlarged. Nontender. No nodules. LUNGS: Respiratory effort, unlabored. CHEST: Normal curvature. No thoracic deformity. No chest wall tenderness. Percussion, resonant. Auscultation, clear. No wheezes, no rales, no rhonchi. CARDIOVASCULAR: Precordial exam, nondisplaced. No heaves or pericardial thrills. Rate and rhythm, regular. Heart sounds, normal S1, normal S2. No S3, no gallop, no rub. Systolic murmur, not heard. Diastolic murmur, not heard. EXTREMITIES: No cyanosis, no edema. Peripheral pulses, full and equal in all extremities, except as noted. No bruits appreciated. ABDOMEN: Soft, nondistended. Normal aorta. No bruit. Nontender. No masses. Liver, nontender, no hepatomegaly. Spleen, nontender, no splenomegaly. MUSCULOSKELETAL: No joint tenderness. No joint swelling. No erythema. NEUROLOGICAL: Normal gait, normal strength, normal tone. SKIN: Warm and dry. OVERALL IMPRESSION: Anginal symptomatology. We will add beta blockade to optimize her medical management. Continue her Imdur. Further care depends upon the results with the beta lyudmila added to this, can also use Ranexa in the future if need be. TRANSINT:[id number] Voice Confirmation ID: [id number] DOCUMENT ID: [id number] CONSULT REPORT [id number] RM CARBAJAL JEFFREY MD at 1005 CC: [id number] DICTATION DATE: 10/17/17918 SENIOR BUSINESS DEVELOPMENT ANALYST: 10/17/17 1249 ADM [address] [place] [address]
[2017-10-17] MEDS ORDERED: PHENERGAN25 M1 PO (03:49)
[2017-10-17] MEDS ORDERED: PLAVIX75 MG PO (03:50)
[2017-10-17] MEDS ORDERED: XANAX1 MG PO (03:50)
[2017-10-17] MEDS ORDERED: ZOFRAN8 MG PO (03:50)
[2017-10-17] MEDS ORDERED: PHOSLO667 MG PO (03:58)
[2017-10-17] MEDS ORDERED: ISOSORBIDE MONO10 MG PO (03:58)
[2017-10-17] MEDS ORDERED: SENSIPAR90 MG PO (03:59)
[2017-10-17 04:23] LABS: BASOPHILS 0.3 % (0-2); EOSINOPHILS 3.8 % (0-7); HEMATOCRIT 32.2 % (36.0-48.0); HEMOGLOBIN 10.3 g/dL (12-16); IMMATURE GRANULOCYTES 0.1 % (0-5); LYMPHOCYTES 10.4 % (15-50); MCH 30.4 pg (26.0-34.0); NEUTROPHILS 77.4 % (40-80); PLATELET COUNT 184 10x3/uL (130-400); RBC 3.39 10x6/uL (4.00-5.40); RDW 17.7 % (11.5-14.5); WBC 9.3 10x3/uL (4.8-10.8)
[2017-10-17 04:45] LABS: ALBUMIN 2.8 g/dL (3.4-5.0); ANION GAP 21.9 mmol/L (8-16); BILIRUBIN - TOTAL 0.57 mg/dL (0.2-1.3); CALCIUM 8.5 mg/dL (8.5-10.1); CREATININE - SERUM 7.2 mg/dL (0.6-1.3); POTASSIUM - SERUM 4.9 mmol/L (3.5-5.1); PROTEIN - SERUM 7.5 g/dL (6.4-8.2)
[2017-10-17 05:11] LABS: TROPONIN-I 0.111 ng/mL (0.000-0.060)
[2017-10-17 06:29] VITALS: BP 138/91
[2017-10-17 06:37] VITALS: BP 138/91; BMI 19.8
[2017-10-17 08:32] VITALS: BP 128/79
[2017-10-17 14:38] VITALS: Ht 157.5 cm; Wt 49.0 kg
[2017-10-17 15:40] VITALS: BP 94/60
[2017-10-17 20:00] VITALS: BP 103/52
[2017-10-18 01:43] VITALS: BP 99/53
[2017-10-18 04:49] VITALS: BP 101/59
[2017-10-18 05:27] LABS: ANION GAP 19.5 mmol/L (8-16); CALCIUM 8.2 mg/dL (8.5-10.1); CREATININE - SERUM 5.6 mg/dL (0.6-1.3); PHOSPHOROUS 7.8 mg/dL (2.5-4.9); POTASSIUM - SERUM 4.2 mmol/L (3.5-5.1)
[2017-10-18 05:28] LABS: CARBON DIOXIDE 25.7 mmol/L (21.0-32.0)
[2017-10-18 05:30] LABS: BASOPHILS 0.6 % (0-2); HEMATOCRIT 32.3 % (36.0-48.0); HEMOGLOBIN 10.1 g/dL (12-16); LYMPHOCYTES 13.2 % (15-50); MCH 30.2 pg (26.0-34.0); MCHC 31.3 g/dL (31.0-37.0); MCV 96.7 fL (80.0-100.0); MEAN PLATELET VOLUME 11.1 fL (7.4-10.4); MONOCYTES 12.2 % (2-11); PLATELET COUNT 204 10x3/uL (130-400); RBC 3.34 10x6/uL (4.00-5.40); RDW 18.1 % (11.5-14.5)
[2017-10-18 05:34] LABS: WBC 6.2 10x3/uL (4.8-10.8)
[2017-10-18 08:33] VITALS: BP 104/57
[2017-10-18] MEDS ORDERED: BETAPACE 80 MG80 MG PO (11:20)
[2017-10-18] MEDS ORDERED: RANEXA500 MG PO (11:20)
[2017-10-18 11:40] VITALS: BP 133/64
== END 2017-10-18 13:00 | disposition home or self-care (01) ==
LOC: D.ER 03:40 → D.M2 05:30 → OBSVTIME 05:30 → D.M2 05:30
PROVIDERS: Family Medicine; Internal Medicine Nephrology
DX: R07.9 Chest pain, unspecified (principal); Z95.5 Presence of coronary angioplasty implant and graft; Z95.1 Presence of aortocoronary bypass graft; E11.22 Type 2 diabetes mellitus with diabetic chronic kidney disease; I12.0 Hypertensive chronic kidney disease with stage 5 chronic kidney disease or end stage renal disease; N18.6 End stage renal disease; Z99.2 Dependence on renal dialysis; E11.65 Type 2 diabetes mellitus with hyperglycemia; E11.43 Type 2 diabetes mellitus with diabetic autonomic (poly)neuropathy; K31.84 Gastroparesis; F41.9 Anxiety disorder, unspecified; D63.1 Anemia in chronic kidney disease; E83.39 Other disorders of phosphorus metabolism; N25.81 Secondary hyperparathyroidism of renal origin; I25.119 Atherosclerotic heart disease of native coronary artery with unspecified angina pectoris; I48.91 Unspecified atrial fibrillation

== ENCOUNTER 2017-10-27 19:03 | Inpatient (IN) | payer MEDICARE ==
[~2017-10-27] VITALS: Ht 157.5 cm; Wt 49.1 kg
[~2017-10-27 19:03] MED LIST changes: +ISOSORBIDE MONO10 MG PO; +PHOSLO667 MG PO; +RANEXA500 MG PO; +SENSIPAR90 MG PO
[2017-10-27 19:56] LABS: BASOPHILS 0.2 % (0-2); EOSINOPHILS 1.9 % (0-7); HEMATOCRIT 35.2 % (36.0-48.0); HEMOGLOBIN 11.2 g/dL (12-16); IMMATURE GRANULOCYTES 0.1 % (0-5); LYMPHOCYTES 8.2 % (15-50); MCHC 31.8 g/dL (31.0-37.0); MCV 97.5 fL (80.0-100.0); MONOCYTES 5.8 % (2-11); NEUTROPHILS 83.8 % (40-80); PLATELET COUNT 238 10x3/uL (130-400); RBC 3.61 10x6/uL (4.00-5.40); RDW 18.7 % (11.5-14.5); WBC 10.1 10x3/uL (4.8-10.8)
[2017-10-27 20:35] LABS: ALBUMIN 3.5 g/dL (3.4-5.0); ALKALINE PHOSPHATASE 409 U/L (46-116); ALT (SGPT) 39 U/L (10-68); BILIRUBIN - TOTAL 0.51 mg/dL (0.2-1.3); CALCIUM 8.2 mg/dL (8.5-10.1); CARBON DIOXIDE 15.5 mmol/L (21.0-32.0); CHLORIDE - SERUM 98 mmol/L (98-107); CKMB 6.4 U/L (0.0-3.6); CREATINE KINASE 70 UL (21-215); CREATININE - SERUM 8.9 mg/dL (0.6-1.3); MAGNESIUM - SERUM 2.5 mg/dL (1.8-2.4); SODIUM 138 mmol/L (136-145); UREA NITROGEN 121 mg/dL (7-18); eGFR NON AFRICAN AMERICAN 5 mL/min (90-120)
[2017-10-27 20:45] LABS: CALC OSMOLALITY 331 mosm/kg (275-300); GLUCOSE 409 mg/dL (74-106); POTASSIUM - SERUM 6.5 mmol/L (3.5-5.1)
[2017-10-27 20:46] LABS: TROPONIN-I 0.115 ng/mL (0.000-0.060)
[2017-10-28 02:48] VITALS: BP 117/85
[2017-10-28] MEDS ORDERED: BETAPACE 80 MG80 MG PO (03:53)
[2017-10-28 04:57] VITALS: BP 127/45; BMI 19.2
[2017-10-28 05:14] VITALS: BP 127/45
[2017-10-28 08:01] VITALS: BP 116/61
[2017-10-28 09:07] LABS: BASOPHILS 0.2 % (0-2); EOSINOPHILS 0.6 % (0-7); HEMATOCRIT 34.4 % (36.0-48.0); HEMOGLOBIN 10.8 g/dL (12-16); IMMATURE GRANULOCYTES 0.2 % (0-5); LYMPHOCYTES 7.4 % (15-50); MCH 30.9 pg (26.0-34.0); MCHC 31.4 g/dL (31.0-37.0); MCV 98.3 fL (80.0-100.0); MEAN PLATELET VOLUME 10.7 fL (7.4-10.4); MONOCYTES 6.6 % (2-11); PLATELET COUNT 227 10x3/uL (130-400); RDW 19.1 % (11.5-14.5); WBC 8.4 10x3/uL (4.8-10.8)
[2017-10-28 09:38] LABS: ANION GAP 35.5 mmol/L (8-16); CALCIUM 8.6 mg/dL (8.5-10.1); CARBON DIOXIDE 14.4 mmol/L (21.0-32.0); CREATININE - SERUM 9.2 mg/dL (0.6-1.3); MAGNESIUM - SERUM 2.5 mg/dL (1.8-2.4)
[2017-10-28 09:43] LABS: PHOSPHOROUS 12.5 mg/dL (2.5-4.9)
[2017-10-28 09:45] LABS: POTASSIUM - SERUM 6.9 mmol/L (3.5-5.1)
[2017-10-28 12:51] VITALS: Ht 157.5 cm; Wt 49.1 kg
[2017-10-28 15:38] VITALS: BP 134/69
[2017-10-28 20:33] VITALS: BP 138/77
[2017-10-29 00:46] VITALS: BP 128/71
[2017-10-29 05:43] VITALS: BP 100/51
[2017-10-29 08:25] VITALS: BP 113/56
[2017-10-29 09:26] LABS: BASOPHILS 0.3 % (0-2); HEMATOCRIT 34.3 % (36.0-48.0); HEMOGLOBIN 10.7 g/dL (12-16); IMMATURE GRANULOCYTES 0.2 % (0-5); LYMPHOCYTES 10.4 % (15-50); MCH 30.6 pg (26.0-34.0); MCHC 31.2 g/dL (31.0-37.0); MEAN PLATELET VOLUME 10.4 fL (7.4-10.4); MONOCYTES 7.5 % (2-11); NEUTROPHILS 80.6 % (40-80); PLATELET COUNT 212 10x3/uL (130-400); RDW 19.2 % (11.5-14.5); WBC 6.1 10x3/uL (4.8-10.8)
[2017-10-29 09:28] LABS: CALCIUM 8.9 mg/dL (8.5-10.1)
[2017-10-29 09:29] LABS: CREATININE - SERUM 5.8 mg/dL (0.6-1.3)
[2017-10-29 09:30] LABS: ANION GAP 33.8 mmol/L (8-16); POTASSIUM - SERUM 4.8 mmol/L (3.5-5.1)
[2017-10-29 11:02] VITALS: BP 90/54
[2017-10-29 16:13] VITALS: BP 102/59
[2017-10-29 20:00] VITALS: BP 101/56
[2017-10-30] VITALS: BP 100/44
[2017-10-30 04:00] VITALS: BP 107/58
[2017-10-30 05:28] LABS: BASOPHILS 0.2 % (0-2); EOSINOPHILS 0.5 % (0-7); HEMATOCRIT 33.1 % (36.0-48.0); HEMOGLOBIN 10.6 g/dL (12-16); LYMPHOCYTES 12.1 % (15-50); MCH 30.9 pg (26.0-34.0); MCV 96.5 fL (80.0-100.0); MEAN PLATELET VOLUME 10.3 fL (7.4-10.4); MONOCYTES 5.9 % (2-11); NEUTROPHILS 81.3 % (40-80); PLATELET COUNT 200 10x3/uL (130-400); RBC 3.43 10x6/uL (4.00-5.40); RDW 18.7 % (11.5-14.5); WBC 6.6 10x3/uL (4.8-10.8)
[2017-10-30 05:35] LABS: ANION GAP 23.1 mmol/L (8-16); CALCIUM 8.2 mg/dL (8.5-10.1); CARBON DIOXIDE 21.9 mmol/L (21.0-32.0)
[2017-10-30 05:48] LABS: CREATININE - SERUM 7.3 mg/dL (0.6-1.3)
[2017-10-30 08:45] VITALS: BP 116/63
[2017-10-30] MEDS ORDERED: RANEXA500 MG PO (09:14)
[2017-10-30 11:12] VITALS: BP 110/58
== END 2017-10-30 13:33 | disposition home or self-care (01) | DRG 640 ==
LOC: D.ER 19:03 → D.EDHOLD 23:55 → D.M2 23:55
PROVIDERS: Family Medicine; Internal Medicine Nephrology
PROC: 5A1D70Z Performance of Urinary Filtration, Intermittent, Less than 6 Hours Per Day (ICD-10-PCS; principal; 2017-10-28)
DX: E87.5 Hyperkalemia (principal); N18.6 End stage renal disease; I12.0 Hypertensive chronic kidney disease with stage 5 chronic kidney disease or end stage renal disease; E10.43 Type 1 diabetes mellitus with diabetic autonomic (poly)neuropathy; K31.84 Gastroparesis; Z79.4 Long term (current) use of insulin; E10.22 Type 1 diabetes mellitus with diabetic chronic kidney disease; Z99.2 Dependence on renal dialysis; I25.118 Atherosclerotic heart disease of native coronary artery with other forms of angina pectoris; E10.51 Type 1 diabetes mellitus with diabetic peripheral angiopathy without gangrene; I48.91 Unspecified atrial fibrillation; F32.9 Major depressive disorder, single episode, unspecified; D63.1 Anemia in chronic kidney disease; I25.5 Ischemic cardiomyopathy; E83.39 Other disorders of phosphorus metabolism; K21.9 Gastro-esophageal reflux disease without esophagitis; Z95.5 Presence of coronary angioplasty implant and graft; Z95.1 Presence of aortocoronary bypass graft; Z87.891 Personal history of nicotine dependence; Z91.19 Patient's noncompliance with other medical treatment and regimen

== ENCOUNTER 2017-11-05 22:45 | Inpatient (IN) | payer MEDICARE ==
[~2017-11-05] VITALS: Ht 157.5 cm; Wt 50.7 kg
[2017-11-05 23:23] VITALS: BP 170/103
[2017-11-05 23:30] VITALS: BP 172/110
[2017-11-05 23:32] LABS: BASOPHILS 0.2 % (0-2); EOSINOPHILS 4.3 % (0-7); HEMATOCRIT 35.6 % (36.0-48.0); HEMOGLOBIN 11.3 g/dL (12-16); IMMATURE GRANULOCYTES 0.1 % (0-5); MCHC 31.7 g/dL (31.0-37.0); MCV 97.8 fL (80.0-100.0); MEAN PLATELET VOLUME 10.6 fL (7.4-10.4); MONOCYTES 7.2 % (2-11); NEUTROPHILS 76.2 % (40-80); RBC 3.64 10x6/uL (4.00-5.40); RDW 17.8 % (11.5-14.5); WBC 8.2 10x3/uL (4.8-10.8)
[2017-11-05 23:36] LABS: APTT 30.9 SECONDS (22.8-39.4); INR 1.27 (0.85-1.17); PROTIME 15.4 SECONDS (11.6-15.0)
[2017-11-05 23:38] LABS: ALKALINE PHOSPHATASE 363 U/L (46-116); ALT (SGPT) 23 U/L (10-68); BILIRUBIN - TOTAL 0.52 mg/dL (0.2-1.3); CALC OSMOLALITY 308 mosm/kg (275-300); CALCIUM 9.2 mg/dL (8.5-10.1); CARBON DIOXIDE 23.2 mmol/L (21.0-32.0); CHLORIDE - SERUM 96 mmol/L (98-107); CREATININE - SERUM 7.5 mg/dL (0.6-1.3); POTASSIUM - SERUM 5.1 mmol/L (3.5-5.1); PROTEIN - SERUM 8.4 g/dL (6.4-8.2); SODIUM 135 mmol/L (136-145); UREA NITROGEN 82 mg/dL (7-18); eGFR NON AFRICAN AMERICAN 7 mL/min (90-120)
[2017-11-05 23:40] LABS: GLUCOSE 354 mg/dL (74-106)
[2017-11-05 23:41] LABS: PLATELET COUNT 241 10x3/uL (130-400)
[2017-11-06] VITALS (9 sets, daily range): BP systolic 97–181; BP diastolic 48–112; BMI 19.2
[2017-11-06] LABS: CKMB 4.3 U/L (0.0-3.6); CREATINE KINASE 54 UL (21-215)
[2017-11-06 00:12] LABS: TROPONIN-I 0.108 ng/mL (0.000-0.060)
[2017-11-06 00:24] LABS: PRO BNP 239251 pg/mL (0-125)
[2017-11-07 02:14] VITALS: BP 82/41
[2017-11-07 04:55] LABS: BASOPHILS 0.4 % (0-2); EOSINOPHILS 1.2 % (0-7); HEMATOCRIT 32.5 % (36.0-48.0); HEMOGLOBIN 10.1 g/dL (12-16); IMMATURE GRANULOCYTES 0.3 % (0-5); LYMPHOCYTES 8.7 % (15-50); MCH 30.6 pg (26.0-34.0); MCHC 31.1 g/dL (31.0-37.0); MCV 98.5 fL (80.0-100.0); MEAN PLATELET VOLUME 10.6 fL (7.4-10.4); MONOCYTES 9.2 % (2-11); NEUTROPHILS 80.2 % (40-80); PLATELET COUNT 240 10x3/uL (130-400); RDW 18.2 % (11.5-14.5); WBC 7.6 10x3/uL (4.8-10.8)
[2017-11-07 05:15] VITALS: BP 73/38
[2017-11-07 05:19] LABS: CALCIUM 8.8 mg/dL (8.5-10.1); CREATININE - SERUM 8.9 mg/dL (0.6-1.3)
[2017-11-07 05:35] LABS: ANION GAP 27.9 mmol/L (8-16); CARBON DIOXIDE 16.4 mmol/L (21.0-32.0)
[2017-11-07 05:37] LABS: POTASSIUM - SERUM 7.3 mmol/L (3.5-5.1)
[2017-11-07 08:34] VITALS: BP 104/57
[2017-11-07 13:07] VITALS: Ht 157.5 cm; Wt 50.7 kg
[2017-11-07 16:34] VITALS: BP 101/34
[2017-11-08 05:38] LABS: BASOPHILS 0.6 % (0-2); EOSINOPHILS 4.6 % (0-7); HEMATOCRIT 29.9 % (36.0-48.0); HEMOGLOBIN 9.4 g/dL (12-16); IMMATURE GRANULOCYTES 0.2 % (0-5); MCH 30.4 pg (26.0-34.0); MCHC 31.4 g/dL (31.0-37.0); MCV 96.8 fL (80.0-100.0); MEAN PLATELET VOLUME 10.4 fL (7.4-10.4); MONOCYTES 10.4 % (2-11); NEUTROPHILS 69.2 % (40-80); PLATELET COUNT 201 10x3/uL (130-400); RBC 3.09 10x6/uL (4.00-5.40); RDW 18.4 % (11.5-14.5)
[2017-11-08 05:47] LABS: WBC 5.2 10x3/uL (4.8-10.8)
[2017-11-08 05:55] LABS: INR 1.4 (0.85-1.17); PROTIME 16.7 SECONDS (11.6-15.0)
[2017-11-08 06:02] VITALS: BP 106/66
[2017-11-08 06:17] LABS: ALBUMIN 2.6 g/dL (3.4-5.0); BILIRUBIN - DIRECT 0.18 mg/dL (0.00-0.30); BILIRUBIN - INDIRECT 0.23 mg/dL (0.00-1.00); BILIRUBIN - TOTAL 0.41 mg/dL (0.2-1.3); CALCIUM 7.9 mg/dL (8.5-10.1); PHOSPHOROUS 8.7 mg/dL (2.5-4.9)
[2017-11-08 06:23] LABS: ANION GAP 17.9 mmol/L (8-16); CARBON DIOXIDE 27.8 mmol/L (21.0-32.0); CREATININE - SERUM 5.3 mg/dL (0.6-1.3); POTASSIUM - SERUM 3.7 mmol/L (3.5-5.1)
[2017-11-08 08:47] VITALS: BP 97/55
[2017-11-08 12:38] VITALS: BP 116/63
[2017-11-08 16:27] VITALS: BP 120/69
[2017-11-08 22:07] VITALS: BP 120/54
[2017-11-09 01:57] VITALS: BP 116/62
[2017-11-09 05:27] LABS: BASOPHILS 0.5 % (0-2); EOSINOPHILS 7.8 % (0-7); HEMATOCRIT 34.4 % (36.0-48.0); IMMATURE GRANULOCYTES 0.2 % (0-5); MCH 31.3 pg (26.0-34.0); MCV 97.7 fL (80.0-100.0); MONOCYTES 14.5 % (2-11); RBC 3.52 10x6/uL (4.00-5.40); WBC 6.3 10x3/uL (4.8-10.8)
[2017-11-09 05:28] LABS: PLATELET COUNT 276 10x3/uL (130-400)
[2017-11-09 05:30] VITALS: BP 120/68
[2017-11-09 05:48] LABS: ANION GAP 14.9 mmol/L (8-16); CALCIUM 8.5 mg/dL (8.5-10.1); CARBON DIOXIDE 27.8 mmol/L (21.0-32.0); CREATININE - SERUM 6.1 mg/dL (0.6-1.3); POTASSIUM - SERUM 3.7 mmol/L (3.5-5.1); VANCOMYCIN - RANDOM 27.2 ug/mL (10.0-20.0)
[2017-11-09 06:10] LABS: PHOSPHOROUS 9.8 mg/dL (2.5-4.9)
[2017-11-09 07:54] VITALS: BP 157/73
[2017-11-09 11:29] VITALS: BP 106/52
[2017-11-09 19:44] VITALS: BP 111/58
[2017-11-10 01:25] VITALS: BP 101/48
[2017-11-10 04:34] LABS: BASOPHILS 0.5 % (0-2); EOSINOPHILS 2.9 % (0-7); HEMATOCRIT 33.4 % (36.0-48.0); HEMOGLOBIN 10.2 g/dL (12-16); IMMATURE GRANULOCYTES 0.2 % (0-5); LYMPHOCYTES 10.4 % (15-50); MCH 30.6 pg (26.0-34.0); MCHC 30.5 g/dL (31.0-37.0); MCV 100.3 fL (80.0-100.0); MEAN PLATELET VOLUME 10.7 fL (7.4-10.4); MONOCYTES 13.4 % (2-11); NEUTROPHILS 72.6 % (40-80); PLATELET COUNT 215 10x3/uL (130-400); RBC 3.33 10x6/uL (4.00-5.40); RDW 18.3 % (11.5-14.5)
[2017-11-10 04:49] LABS: ANION GAP 10.8 mmol/L (8-16); CALCIUM 8.4 mg/dL (8.5-10.1); CARBON DIOXIDE 32.2 mmol/L (21.0-32.0); CREATININE - SERUM 4.8 mg/dL (0.6-1.3); VANCOMYCIN - RANDOM 17.5 ug/mL (10.0-20.0)
[2017-11-10 04:52] LABS: PHOSPHOROUS 6.7 mg/dL (2.5-4.9)
[2017-11-10 05:58] VITALS: BP 92/40
[2017-11-10] MEDS ORDERED: AUGMENTIN 500-11 TA1 PO (07:02)
[2017-11-25 18:10] LABS: AEROBE ID Final report (()); RESULT 1 Gram positive rods (())
== END 2017-11-10 09:30 | disposition home or self-care (01) | DRG 193 ==
LOC: D.ER 22:45 → D.M2 11-06 00:55
PROVIDERS: Family Medicine; Internal Medicine Nephrology
PROC: 5A1D70Z Performance of Urinary Filtration, Intermittent, Less than 6 Hours Per Day (ICD-10-PCS; principal; 2017-11-07)
DX: J18.9 Pneumonia, unspecified organism (principal); N18.6 End stage renal disease; I12.0 Hypertensive chronic kidney disease with stage 5 chronic kidney disease or end stage renal disease; E10.22 Type 1 diabetes mellitus with diabetic chronic kidney disease; E10.65 Type 1 diabetes mellitus with hyperglycemia; Z99.2 Dependence on renal dialysis; E10.43 Type 1 diabetes mellitus with diabetic autonomic (poly)neuropathy; K31.84 Gastroparesis; I95.9 Hypotension, unspecified; I25.10 Atherosclerotic heart disease of native coronary artery without angina pectoris; I48.91 Unspecified atrial fibrillation; Z95.1 Presence of aortocoronary bypass graft; Z87.891 Personal history of nicotine dependence

== ENCOUNTER 2017-11-30 20:51 | Emergency (ER) | payer MEDICARE ==
[~2017-11-30] VITALS: Ht 157.5 cm; Wt 49.1 kg
[~2017-11-30 20:51] MED LIST changes: +AUGMENTIN 500-11 TA1 PO
[2017-11-30 21:01] VITALS: Ht 157.5 cm; Wt 49.1 kg
[2017-11-30 21:50] LABS: BASOPHILS 0.6 % (0-2); EOSINOPHILS 1.5 % (0-7); HEMATOCRIT 34.9 % (36.0-48.0); HEMOGLOBIN 11.3 g/dL (12-16); IMMATURE GRANULOCYTES 0.2 % (0-5); LYMPHOCYTES 15.9 % (15-50); MCH 32.1 pg (26.0-34.0); MCHC 32.4 g/dL (31.0-37.0); MCV 99.1 fL (80.0-100.0); MEAN PLATELET VOLUME 10.9 fL (7.4-10.4); MONOCYTES 11.7 % (2-11); NEUTROPHILS 70.1 % (40-80); PLATELET COUNT 254 10x3/uL (130-400); RBC 3.52 10x6/uL (4.00-5.40); RDW 19.7 % (11.5-14.5); WBC 6.5 10x3/uL (4.8-10.8)
[2017-11-30 22:13] LABS: ALKALINE PHOSPHATASE 312 U/L (46-116); ALT (SGPT) 17 U/L (10-68); BILIRUBIN - TOTAL 0.77 mg/dL (0.2-1.3); CALCIUM 9.1 mg/dL (8.5-10.1); CARBON DIOXIDE 19.7 mmol/L (21.0-32.0); CHLORIDE - SERUM 95 mmol/L (98-107); CKMB 3.9 U/L (0.0-3.6); PROTEIN - SERUM 7.4 g/dL (6.4-8.2); SODIUM 132 mmol/L (136-145); UREA NITROGEN 89 mg/dL (7-18); eGFR NON AFRICAN AMERICAN 6 mL/min (90-120)
[2017-11-30 22:14] LABS: CALC OSMOLALITY 290 mosm/kg (275-300); GLUCOSE 75 mg/dL (74-106)
[2017-11-30 22:16] LABS: POTASSIUM - SERUM 6.2 mmol/L (3.5-5.1)
[2017-11-30 22:17] LABS: TROPONIN-I 0.138 ng/mL (0.000-0.060)
[2017-11-30 22:40] LABS: PRO BNP 195828 pg/mL (0-125)
[2017-11-30 22:56] LABS: HCG SERUM NEGATIVE (NEGATIVE)
[2017-12-01 01:15] LABS: ALBUMIN 2.5 g/dL (3.4-5.0); ANION GAP 23.8 mmol/L (8-16); BILIRUBIN - TOTAL 0.85 mg/dL (0.2-1.3); CALCIUM 9.7 mg/dL (8.5-10.1); CARBON DIOXIDE 22.7 mmol/L (21.0-32.0); CREATININE - SERUM 7.9 mg/dL (0.6-1.3); MAGNESIUM - SERUM 3.1 mg/dL (1.8-2.4); POTASSIUM - SERUM 5.5 mmol/L (3.5-5.1); PROTEIN - SERUM 6.6 g/dL (6.4-8.2)
[2017-12-01 03:58] VITALS: BP 131/74
== END 2017-12-01 03:59 | disposition short-term general hospital (02) ==
LOC: D.ER 20:51
PROVIDERS: Family Medicine
DX: I46.9 Cardiac arrest, cause unspecified (principal); E78.5 Hyperlipidemia, unspecified; R11.0 Nausea; E11.9 Type 2 diabetes mellitus without complications; I25.10 Atherosclerotic heart disease of native coronary artery without angina pectoris; I12.9 Hypertensive chronic kidney disease with stage 1 through stage 4 chronic kidney disease, or unspecified chronic kidney disease; N18.9 Chronic kidney disease, unspecified; Z99.2 Dependence on renal dialysis